=== PATIENT | female | born 1965 | race Hispanic/Latino ===

== ENCOUNTER 2017-05-28 06:24 | Emergency (ER) | payer BC, OTHER ==
[2017-05-28 06:26] VITALS: BMI 28.8
[2017-05-28 06:29] VITALS: TEMP 98.9
[2017-05-28] MEDS ORDERED: Morphine 4 mg/ml ISec IVP STA (06:45)
[2017-05-28 06:55] LABS: BASO # 0.02 K/mm3 (0.0-2.0); BASO % 0.3 % (0.0-3.0); EOS # 0.3 (0.0-0.7); EOS % 3.8 % (1.5-5.0); GRAN # 5.01 (1.4-6.5); GRAN % 64.3 % (50.0-68.0); HEMATOCRIT 39.4 % (36.0-48.0); LYMPH # 1.7 (1.2-3.4); LYMPH % 21.9 % (22.0-35.0); MEAN CELL VOLUME 81.7 fl (80.0-105.0); MEAN CORPUSCULAR HEMOGLOBIN 26.8 pg (25.0-35.0); MEAN CORPUSCULAR HGB CONC 32.7 g/dl (31.0-37.0); MEAN PLATELET VOLUME 9.8 fl (7.0-11.0); MONO # 0.8 (0.1-0.6); MONO % 9.7 % (1.0-6.0); RED CELL DISTRIBUTION WIDTH 13.9 % (11.5-14.5); WHITE BLOOD COUNT 7.8 10^3/ul (4.5-11.0)
[2017-05-28 06:56] LABS: PH,URINE 6.5 (4.7-8.0); URINE APPEARANCE CLEAR (CLEAR); URINE BILIRUBIN NEGATIVE (NEGATIVE); URINE BLOOD NEGATIVE (NEGATIVE); URINE COLOR STRAW (YELLOW); URINE GLUCOSE (UA) NEGATIVE (NEGATIVE); URINE KETONE NEGATIVE (NEGATIVE); URINE LEUKOCYTE ESTERASE TRACE Leu/uL (NEGATIVE); URINE PROTEIN NEGATIVE mg/dL (<30 mg/dL); URINE UROBILINOGEN 0.2 E.U./dL (<1 E.U./dL)
[2017-05-28 06:59] LABS: URINE RBC 0 - 2 /hpf (0-2)
[2017-05-28 07:00] LABS: ALB/GLOB RATIO 1.3 (1.1-1.8); ALKALINE PHOSPHATASE 70 U/L (38-126); ALT/SGPT 24 U/L (7-56); AST/SGOT 22 U/L (14-36); BILIRUBIN,TOTAL 0.9 mg/dL (0.2-1.3); BLOOD UREA NITROGEN 18 mg/dL (7-21); CALCIUM 9.2 mg/dL (8.4-10.5); CARBON DIOXIDE 27 mmol/L (21-33); CHLORIDE 106 mmol/L (98-107); GFR AFRICAN-AMERICAN > 60; GLUCOSE,RANDOM 96 mg/dL (70-110); POTASSIUM 4.2 mmol/L (3.6-5.0); SODIUM 142 mmol/L (132-148); TOTAL PROTEIN 7.4 g/dL (5.8-8.3)
[2017-05-28] MEDS ORDERED: Sodium Chloride 0.9% 1,000 ML IV SCH (07:00)
[2017-05-28] MEDS ORDERED: diaZEpam 10 mg/2 ml Inj IVP STA (07:16)
--- NOTE | 2017-05-28 07:24 | ED PDOC ---
Arrival/HPI - General Chief Complaint: Headache Time Seen by Provider: 05/28/17 06:32 - History of Present Illness Narrative History of Present Illness (Text): 05/28/17 07:20 Patient is a 51 y/o F presenting with abdominal pain and headache. Patient reports that while at work yesterday patient developed a R sided headache that radiated into her R shoulder. 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 She reports that she thinks this has contributed to the pain. Reports that the pain is worse with movement and stretching of her arm and neck. Denies fever, chest pain, shortness of breath, vision changes, weakness, numbness or tingling. She is also complaining of RLQ pain that started this morning. She reports a hx of diverticulitis and reports that the pain feels similar. Reports nausea. Denies vomiting, dysuria, vaginal bleeding, constipation or diarrhea. Past Medical History - Past History Past History: No Previous - Infectious Disease Hx of Infectious Diseases: None - Tetanus Immunization Tetanus Immunization: Up to Date - Past Medical History Past Medical History: No Previous - Cardiac Hx Cardiac Disorders: No Hx Pacemaker: No - Pulmonary Hx Respiratory Disorders: No - Neurological Hx Neurological Disorder: No Hx Paralysis: No - HEENT Hx HEENT Disorder: No - Renal Hx Renal Disorder: Yes Hx Kidney Stones: Yes (passed without intervention) - Endocrine/Metabolic Hx Endocrine Disorders: Yes Hx Hyperthyroidism: Yes (childhood no longer) - Hematological/Oncological Hx Blood Disorders: No Hx Blood Transfusions: No Hx Blood Transfusion Reaction: No - Integumentary Hx Dermatological Disorder: No - Musculoskeletal/Rheumatological Hx Musculoskeletal Disorders: Yes - Gastrointestinal Hx Gastrointestinal Disorders: Yes Hx Diverticulitis: Yes Other/Comment: angulated sigmoid colon - Genitourinary/Gynecological Hx Genitourinary Disorders: Yes Other/Comment: fibroid uterus - Psychiatric Hx Psychophysiologic Disorder: No Hx Emotional Abuse: No Hx Physical Abuse: No Hx Substance Use: No - Surgical History Hx Hysterectomy: Yes Hx Orthopedic Surgery: Yes - Anesthesia Hx Anesthesia Reactions: Yes (mucus salvia build up) Hx Malignant Hyperthermia: No - Suicidal Assessment Feels Threatened In Home Enviroment: No Family/Social History Family/Social History: No Known Family HX Smoking Status: Light Smoker < 10 Cigarettes Daily Hx Alcohol Use: Yes Hx Substance Use: No Hx Substance Use Treatment: No Allergies/Home Meds Allergies/Adverse Reactions: Allergies seasonal allergies Allergy (Severe, Uncoded 04/16/16 12:50) CONGESTION VERIFIED 10/02/14 Home Medications: Home Meds Medication Instructions Recorded Confirmed Omeprazole [Omeprazole] 20 mg PO DAILY 09/07/15 05/28/17 Ranitidine HCl [Acid [employer] Specialist] mg PO HS 05/28/17 Review of Systems - Review of Systems Constitutional: absent: Fevers Eyes: absent: Vision Changes Respiratory: absent: SOB, Cough, Sputum, Wheezing Cardiovascular: absent: Chest Pain, Palpitations, Edema, Calf Pain, Orthopnea, Syncope Gastrointestinal: Abdominal Pain. absent: Constipation, Diarrhea, Nausea, Vomiting Genitourinary Female: absent: Dysuria, Frequency, Hematuria, Vaginal Bleeding, Vaginal Discharge Musculoskeletal: Arthralgias, Back Pain Neurological: Headache. absent: Dizziness, Focal Weakness, Gait Changes, Speech Changes, Facial Droop, Disequilibrium, Seizure Psychiatric: Anxiety Physical Exam Vital Signs Temp Pulse Resp BP Pulse Ox 05/28/17 09:56 65 18 123/72 97 05/28/17 08:33 74 17 128/86 99 05/28/17 06:29 98.9 F 83 20 147/89 98 Temperature: Afebrile Blood Pressure: Normal Pulse: Regular Respiratory Rate: Normal Appearance: Positive for: Well-Appearing, Non-Toxic, Comfortable Pain Distress: None Mental Status: Positive for: Alert and Oriented X 3 - Systems Exam Head: Present: Atraumatic, Normocephalic Pupils: Present: PERRL Extroacular Muscles: Present: EOMI Conjunctiva: Present: Normal Mouth: Present: Moist Mucous Membranes Neck: Present: Normal Range of Motion, Trachea Midline, Other (palpable muscle spasm at base of R neck, tender to palpation). No: MIDLINE TENDERNESS, JVD, Lymphadenopathy, Bruit Respiratory/Chest: Present: Clear to Auscultation, Good Air Exchange. No: Respiratory Distress, Accessory Muscle Use Cardiovascular: Present: Regular Rate and Rhythm, Normal S1, S2. No: Murmurs Abdomen: Present: Tenderness (RLQ). No: Distention, Rebound, Guarding Back: Present: Normal Inspection. No: CVA Tenderness Upper Extremity: Present: Normal Inspection Lower Extremity: Present: Normal Inspection Neurological: Present: GCS=15, CN II-XII Intact, Speech Normal, Motor Func Grossly Intact, Normal Sensory Function Psychiatric: Present: Alert, Oriented x 3, Anxious Medical Decision Making ED Course and Treatment: 05/28/17 07:25 Headache and neck pain consistent with muscle spasm. Neurologically intact, afebrile and well appearing. Labs ordered prior to my shift are grossly normal. UA negative. Will give toradol, valium and get CT to evaluate for diverticulitis vs appendicitis. 05/28/17 09:00 FINDINGS: LOWER THORAX: Hiatal hernia is identified but there is no pleural or pericardial effusion or definitive mass identified. LIVER: Unremarkable. No gross lesion or ductal dilatation. GALLBLADDER AND BILE DUCTS: Unremarkable. PANCREAS: Unremarkable. No gross lesion or ductal dilatation. SPLEEN: Unremarkable. ADRENALS: Unremarkable. No mass. KIDNEYS AND URETERS: Stable lower pole right renal cyst evident. No hydronephrosis. No solid mass. VASCULATURE: Unremarkable. No aortic aneurysm. BOWEL: Post gastric sleeve surgical changes again seen at the stomach. There is no small or large bowel obstruction pattern identified. Mild to moderate AP material scattered throughout the large bowel with moderate sigmoid diverticulosis again seen however the prior inflammatory changes appear to have resolved with no definite acute diverticulitis appreciated this time. The appendix is not identified however there is no overt CT sign to suggest appendicitis at this time. Clinically correlate further. APPENDIX: As above in bowel section. PERITONEUM: Unremarkable. No free fluid. No free air. LYMPH NODES: Unremarkable. No enlarged lymph nodes. BLADDER: Unremarkable. REPRODUCTIVE: Prior hysterectomy again evident. BONES: No acute fracture. OTHER FINDINGS: None. IMPRESSION: No definitive acute abdominal findings including the right lower quadrant although the appendix is not identified. Clinically correlate. No sigmoid diverticulitis although diverticulosis remains moderate appearing with prior infra local inflammatory/infectious changes now resolved. If symptoms persist or worsen follow-up CT with contrast is recommended. Postoperative gastric changes suggestive gastric sleeve surgery in the past. 05/28/17 09:[address] made aware of CT results. Reports hx of chronic headaches and has not followed up with neurology. She is requesting CT to evaluate for chronic headaches. 05/28/17 09:43 CT head negative. After toradol, valium and tylenol, patient feels better. She has soft NT/ND abdomen. She reports that she will follow-up with neurology and will return with any worsening symptoms. - Lab Interpretations Lab Results: 05/28/17 06:40 05/28/17 06:40 Lab Results 05/28/17 06:40: Sodium 142, Potassium 4.2, Chloride 106, Carbon Dioxide 27, Anion Gap 13, BUN 18, Creatinine 0.7, Est GFR ( Amer) > 60, Est GFR (Non- Af Amer) > 60, Random Glucose 96, Calcium 9.2, Total Bilirubin 0.9, AST 22, ALT 24, Alkaline Phosphatase 70, Total Protein 7.4, Albumin 4.2, Globulin 3.3, Albumin/Globulin Ratio 1.3 05/28/17 06:40: Urine Color Straw, Urine Appearance Clear, Urine pH 6.5, Ur Specific [place] <= 1.005, Urine Protein Negative, Urine Glucose (UA) Negative, Urine Ketones Negative, Urine Blood Negative, Urine Nitrate Negative, Urine Bilirubin Negative, Urine Urobilinogen 0.2, Ur Leukocyte Esterase Trace H, Urine RBC 0 - 2, Urine WBC 1 - 3, Ur Epithelial Cells 1 - 3 05/28/17 06:40: WBC 7.8 D, RBC 4.82, Hgb 12.9, Hct 39.4, MCV 81.7, MCH 26.8, MCHC 32.7, RDW 13.9, Plt Count 222, MPV 9.8, Gran % 64.3, Lymph % (Auto) 21.9 L , [place]ake % (Auto) 9.7 H, Eos % (Auto) 3.8, Baso % (Auto) 0.3, Gran # 5.01, Lymph # 1.7, Leake # 0.8 H, Eos # 0.3, Baso # 0.02 - RAD Interpretation Radiology Orders: 05/28/17 07:15 ABD & PELVIS IV CONTRAST ONLY [CT] Stat 05/28/17 09:04 HEAD W/O CONTRAST [CT] Stat - Medication Orders Current Medication Orders: Discontinued Medications Acetaminophen (Tylenol 325mg Tab) 975 mg PO STAT STA Stop: 05/28/17 08:33 Last Admin: 05/28/17 08:59 Dose: 975 mg MAR Pain/Vitals Document 05/28/17 08:59 MR (Rec: 05/28/17 09:00 MR [id number]) Pain Reassessment Is This A Pain ReAssessment? Yes Sleep Is patient sleeping during reassessment? No Presence of Pain Presence of Pain Yes Pain Scale Used Pain Scale Used Numeric Location Left, Right or Bilateral Right Pain Location Body Nutrition Services Manager Description Constant Intensity 7 Scale Used Numeric Pain Behavior Restlessness Facial Grimacing Alleviating Factors Medication Diazepam (Valium) 2 mg IVP STAT STA PRN Reason: Protocol Stop: 05/28/17 07:17 Last Admin: 05/28/17 07:36 Dose: 2 mg IVP Administration Document 05/28/17 07:36 MR (Rec: 05/28/17 07:36 MR [id number]) Charges for Administration # of IVP Administrations 1 Sodium Chloride (Sodium Chloride 0.9%) 1,000 mls @ 100 mls/hr IV .Q10H DELMER Last Admin: 05/28/17 06:59 Dose: 100 mls/hr eMAR Start Stop Document 05/28/17 06:59 YP (Rec: 05/28/17 07:00 YP [facility] [id number]) Intravenous Solution Start Date 05/28/17 Start Time 07:00 Ketorolac Tromethamine (Toradol) 30 mg IVP STAT STA Stop: 05/28/17 07:16 Last Admin: 05/28/17 07:36 Dose: 30 mg MAR Pain Assessment Document 05/28/17 07:36 MR (Rec: 05/28/17 07:39 MR [id number]) Pain Reassessment Is this a pain reassessment? Yes Presence of Pain Presence of Pain Yes Pain Scale Used Pain Scale Used Numeric Location Left, Right or Bilateral Bilateral Pain Location Body Nutrition Services Manager Neck Abdomen Back Description Description Intermittent Intensity of Pain at present 8 Pain Behavior Facial Grimacing Aggravating Factors Changing Position Alleviating Factors/Management Medication Techniques Alleviating Factors Medication IVP Administration Document 05/28/17 07:36 MR (Rec: 05/28/17 07:39 MR [id number]) Charges for Administration # of IVP Administrations 1 Metoclopramide HCl (Reglan) 10 mg IVP STAT STA Stop: 05/28/17 08:34 Last Admin: 05/28/17 09:00 Dose: 10 mg IVP Administration Document 05/28/17 09:00 MR (Rec: 05/28/17 09:00 MR [id number]) Charges for Administration # of IVP Administrations 1 Morphine Sulfate (Morphine) 4 mg IVP STAT STA Stop: 10/26/17 06:46 Last Admin: 05/28/17 06:55 Dose: 4 mg MAR Pain Assessment Document 05/28/17 06:55 SS (Rec: 05/28/17 06:56 SS [id number]) Pain Reassessment Is this a pain reassessment? No Sleep Is patient sleeping during reassessment? No Presence of Pain Presence of Pain Yes Location Upper or Lower Lower Pain Location Body Site Abdomen Description Intensity of Pain at present 10 Pain Behavior Restlessness Facial Grimacing IVP Administration Document 05/28/17 06:55 SS (Rec: 05/28/17 06:56 SS [id number]) Charges for Administration # of IVP Administrations 1 Ondansetron HCl (Zofran Inj) 4 mg IVP STAT STA Stop: 05/28/17 06:47 Last Admin: 05/28/17 06:56 Dose: 4 mg IVP Administration Document 05/28/17 06:56 SS (Rec: 05/28/17 06:56 [id number]) Charges for Administration # of IVP Administrations 1 Disposition/Present on Arrival - Present on Arrival Any Indicators Present on Arrival: No History of DVT/PE: No History of Uncontrolled Diabetes: No Urinary Catheter: No History of Decub. Ulcer: No History Surgical Site Infection Following: None - Disposition Have Diagnosis and Disposition been Completed?: Yes Diagnosis: Abdominal pain, Tension headache Disposition: HOME/ ROUTINE Disposition Time: 09:44 Patient Plan: Discharge Condition: GOOD Discharge Instructions (ExitCare): Tension Headache (ED) Additional Instructions: Follow-up with PMD within 2 days. Return to ED if condition worsens. Referrals: Goyo Oh MD [Staff Provider] - Follow up with primary Pedro Oh MD [Staff Provider] - Follow up with primary Forms: [employer] (Kinyarwanda)
[2017-05-28] MEDS ORDERED: Iohexol 350 MG/100 ML VIAL ONE (07:30)
--- NOTE | 2017-05-28 08:58 | CT ---
PROCEDURE: CT Abdomen and Pelvis with contrast HISTORY: RLQ pain, hx of diverticulitis COMPARISON: Unenhanced and pelvis CT 04/05/2016. TECHNIQUE: Following the intravenous administration of iodinated contrast material, a CT examination of the abdomen and pelvis performed from the domes of the diaphragms to the symphysis pubis with reformatted datasets provided not only axial but also sagittal and coronal planes. Oral contrast was not administered as per referring physician request. Contrast dose: Omnipaque 350, 100 cc. Radiation dose: Total exam DLP = 958.30 mGy-cm. This CT exam was performed using one or more of the following dose reduction techniques: Automated exposure control, adjustment of the mA and/or kV according to patient size, and/or use of iterative reconstruction technique. FINDINGS: LOWER THORAX: Hiatal hernia is identified but there is no pleural or pericardial effusion or definitive mass identified. LIVER: Unremarkable. No gross lesion or ductal dilatation. GALLBLADDER AND BILE DUCTS: Unremarkable. PANCREAS: Unremarkable. No gross lesion or ductal dilatation. SPLEEN: Unremarkable. ADRENALS: Unremarkable. No mass. KIDNEYS AND URETERS: Stable lower pole right renal cyst evident. No hydronephrosis. No solid mass. VASCULATURE: Unremarkable. No aortic aneurysm. BOWEL: Post gastric sleeve surgical changes again seen at the stomach. There is no small or large bowel obstruction pattern identified. Mild to moderate AP material scattered throughout the large bowel with moderate sigmoid diverticulosis again seen however the prior inflammatory changes appear to have resolved with no definite acute diverticulitis appreciated this time. The appendix is not identified however there is no overt CT sign to suggest appendicitis at this time. Clinically correlate further. APPENDIX: As above in bowel section. PERITONEUM: Unremarkable. No free fluid. No free air. LYMPH NODES: Unremarkable. No enlarged lymph nodes. BLADDER: Unremarkable. REPRODUCTIVE: Prior hysterectomy again evident. BONES: No acute fracture. OTHER FINDINGS: None. IMPRESSION: No definitive acute abdominal findings including the right lower quadrant although the appendix is not identified. Clinically correlate. No sigmoid diverticulitis although diverticulosis remains moderate appearing with prior infra local inflammatory/infectious changes now resolved. If symptoms persist or worsen follow-up CT with contrast is recommended. Postoperative gastric changes suggestive gastric sleeve surgery in the past.
--- NOTE | 2017-05-28 09:42 | CT ---
PROCEDURE: CT HEAD WITHOUT CONTRAST. HISTORY: headache COMPARISON: None available. TECHNIQUE: Axial computed tomography images were obtained through the head/brain without intravenous contrast. Radiation dose: Total exam DLP = 726 mGy-cm. This CT exam was performed using one or more of the following dose reduction techniques: Automated exposure control, adjustment of the mA and/or kV according to patient size, and/or use of iterative reconstruction technique. FINDINGS: HEMORRHAGE: No intracranial hemorrhage. BRAIN: No mass effect or edema. No atrophy or chronic microvascular ischemic changes. VENTRICLES: Unremarkable. No hydrocephalus. CALVARIUM: Unremarkable. PARANASAL SINUSES: Unremarkable as visualized. No significant inflammatory changes. MASTOID AIR CELLS: Unremarkable as visualized. No inflammatory changes. OTHER FINDINGS: None. IMPRESSION: No acute findings
[2017-05-28 09:57] VITALS: BP 123/72; PULSE 65; RESP 18; O2SAT 97
== END 2017-05-28 09:58 | disposition home or self-care (01) ==
LOC: ED 06:24
DX: R10.9 Unspecified abdominal pain (principal); G44.209 Tension-type headache, unspecified, not intractable; E05.90 Thyrotoxicosis, unspecified without thyrotoxic crisis or storm; F17.210 Nicotine dependence, cigarettes, uncomplicated
CPT/HCPCS: 70450; 74177; 80053; 81001; 85025; 87086; 96374; 96375; 99285; J1885; J2270; J2405; J2765; J3360; J7040; Q9967

== ENCOUNTER 2018-09-14 17:23 | Observation (INO) | payer BC ==
[2018-09-14 17:32] VITALS: BMI 31.6
--- NOTE | 2018-09-14 18:06 | ED PDOC ---
Arrival/HPI - General Chief Complaint: Chest Pain Time Seen by Provider: 09/14/18 17:26 Historian: Patient - History of Present Illness Narrative History of Present Illness (Text): 09/14/18 17:57 53 y/o female with PMH of GERD, obesity (s/p gastric sleeve 2006), chronic left shoulder pain presents to the ED c/o chest pain x 45 minutes. Describes the pain as a pressure over the left breast with radiation into the left arm with associated sharp pain that radiates through to her back between her shoulder blades. Began while she was sitting at work, associated nausea, lightheadedness, SOB. Took 81mg of ASA at work, given to her by a friend. Does not take ASA daily, does not have a career counselor. Last stress test 3 years ago, normal. Admits to drinking a few glasses of wine and smoking 1/2ppd tobacco on the weekends. Currently feels anxious in addition to the pain. Denies fevers, chills, cough, syncope, palpitations, vomiting, diarrhea, weakness, numbness, paresthesias, or any other associated symptoms. Past Medical History - Provider Review Nursing Documentation Reviewed: Yes - Past History Past History: No Previous - Infectious Disease Hx of Infectious Diseases: None - Tetanus Immunization Tetanus Immunization: Up to Date - Reproductive Currently : Unknown - Past Medical History Past Medical History: No Previous - Cardiac Hx Cardiac Disorders: No - Pulmonary Hx Respiratory Disorders: No - Neurological Hx Neurological Disorder: No - HEENT Hx HEENT Disorder: No - Renal Hx Renal Disorder: Yes Hx Kidney Stones: Yes (passed without intervention) - Endocrine/Metabolic Hx Endocrine Disorders: Yes Hx Hyperthyroidism: Yes (childhood no longer) - Hematological/Oncological Hx Blood Disorders: No - Integumentary Hx Dermatological Disorder: No - Musculoskeletal/Rheumatological Hx Musculoskeletal Disorders: Yes - Gastrointestinal Hx Gastrointestinal Disorders: Yes Hx Diverticulitis: Yes Other/Comment: angulated sigmoid colon - Genitourinary/Gynecological Hx Genitourinary Disorders: Yes Other/Comment: fibroid uterus - Psychiatric Hx Psychophysiologic Disorder: No Hx Substance Use: No - Surgical History Hx Hysterectomy: Yes Hx Orthopedic Surgery: Yes - Anesthesia Hx Anesthesia: Yes Hx Anesthesia Reactions: Yes (mucus salvia build up) Hx Malignant Hyperthermia: No - Suicidal Assessment Feels Threatened In Home Enviroment: No Family/Social History - Physician Review Nursing Documentation Reviewed: Yes Family/Social History: Unknown Family HX Smoking Status: Light Smoker < 10 Cigarettes Daily Hx Alcohol Use: Yes Hx Substance Use: No Hx Substance Use Treatment: No Allergies/Home Meds Allergies/Adverse Reactions: Allergies seasonal allergies Allergy (Severe, Uncoded 09/14/18 17:32) CONGESTION VERIFIED 10/02/14 Home Medications: Home Meds Medication Instructions Recorded Confirmed Omeprazole 20 mg PO DAILY 09/07/15 09/14/18 Ranitidine HCl [Acid Compensation Analyst] 300 mg PO HS 05/28/17 09/14/18 Review of Systems - Physician Review All systems were reviewed & negative as marked: Yes - Review of Systems Constitutional: absent: Fatigue, Fevers Eyes: Normal. absent: Vision Changes ENT: Normal. absent: Sore Throat, Sinus Congestion Respiratory: SOB. absent: Cough, Sputum, Wheezing Cardiovascular: Chest Pain. absent: Palpitations, Edema, Calf Pain, Syncope Gastrointestinal: Abdominal Pain, Nausea. absent: Stool Changes, Vomiting, Appetite Changes Genitourinary Female: Normal. absent: Dysuria, Frequency Musculoskeletal: Back Pain Skin: Normal. absent: Rash, Pruritis Neurological: Normal. absent: Headache, Dizziness, Seizure Endocrine: Normal. absent: Diaphoresis Hemo/Lymphatic: Normal Psychiatric: Anxiety Physical Exam Vital Signs Reviewed: Yes Vital Signs Temp Pulse Resp BP Pulse Ox 09/14/18 17:24 98 F 92 H 17 152/107 H 99 Temperature: Afebrile Blood Pressure: Hypertensive Pulse: Regular Respiratory Rate: Normal Appearance: Positive for: Well-Appearing, Non-Toxic, Comfortable Pain Distress: None Mental Status: Positive for: Alert and Oriented X 3 - Systems Exam Head: Present: Atraumatic, Normocephalic Pupils: Present: PERRL Extroacular Muscles: Present: EOMI Conjunctiva: Present: Normal Mouth: Present: Moist Mucous Membranes Nose (External): Present: Atraumatic Neck: Present: Normal Range of Motion. No: Meningeal Signs, MIDLINE TENDERNESS, Paraspinal Tenderness Respiratory/Chest: Present: Clear to Auscultation, Good Air Exchange. No: Respiratory Distress, Accessory Muscle Use Cardiovascular: Present: Regular Rate and Rhythm, Normal S1, S2, Peripheal Pulses Present (and equal). No: Murmurs Abdomen: Present: Normal Bowel Sounds. No: Tenderness, Distention, Peritoneal Signs, Rebound, Guarding Back: Present: Normal Inspection. No: CVA Tenderness, Midline Tenderness Upper Extremity: Present: Normal Inspection, Normal ROM, NORMAL PULSES, N eurovascularly Intact, Capillary Refill < 2s. No: Cyanosis, Edema, Temperature Abnormalties Lower Extremity: Present: Normal Inspection, NORMAL PULSES, Normal ROM, Neurovascularly Intact, Capillary Refill < 2 s. No: Edema, Temperature Abnormalties Neurological: Present: GCS=15, CN II-XII Intact, Speech Normal, Motor Func Grossly Intact (strength 5/5 bilaterally ), Normal Sensory Function, Normal Cerebellar Funct, Gait Normal, Other (negative rhomberg) Skin: Present: Warm, Dry, Normal Color. No: Rashes Psychiatric: Present: Alert, Oriented x 3, Normal Insight, Normal Concentration, Normal Affect, Anxious Medical Decision Making ED Course and Treatment: Initial Plan: * CBC, CMP * Coags * Mg, Phos * Troponin * Lipid Panel * EKG * CXR EKG shows NSR at 84; No STEMI or other signs of ischemia ASA held pending CTA to r/o dissection. [address] for CTA dissection protocol Labwork reviewed, Mg elevated, lipids elevated, otherwise unremarkable; troponin negative. UA significant for moderate leuk esterase, will give Keflex bid x 7 days. CXR unremarkable 1904 CTA resulted. Shows no abnormality, no dissection. [address] Manav Gonzalez, who accepted patient for inpatient observation to telemetry for chest pain, r/o ACS. - Lab Interpretations Narrative Lab Interpretation (Text): 09/14/18 18:40 09/14/18 18:00 09/14/18 18:00 Lab Results 09/14/18 18:00: Sodium 141, Potassium 4.5, Chloride 106, Carbon Dioxide 27, Anion Gap 12, BUN 19, Creatinine 0.7, Est GFR ( Amer) > 60, Est GFR (Non-Af Amer) > 60, Random Glucose 100, Calcium 9.4, Magnesium 2.3 H, Total Bilirubin 0.4, AST 82 H D, ALT 55, Alkaline Phosphatase 104, Troponin I < 0.01, Total Protein 8.0, Albumin 4.5, Globulin 3.5, Albumin/Globulin Ratio 1.3, Triglycerides 152, Cholesterol 208 H, LDL Cholesterol Direct 98, HDL Cholesterol 97 H, Lipase 87 09/14/18 18:00: Urine Color Yellow, Urine Appearance Clear, Urine pH 6.5, Ur Specific [place] 1.010, Urine Protein Negative, Urine Glucose (UA) Negative, U rine Ketones Negative, Urine Blood Negative, Urine Nitrate Negative, Urine Bilirubin Negative, Urine Urobilinogen 0.2, Ur Leukocyte Esterase Moderate H, Urine RBC TEST NOT PERFORMED, Urine WBC 10 - 15 H, Ur Epithelial Cells 10 - 12 H 09/14/18 18:00: PT 10.6, INR 0.95, APTT 34.5 09/14/18 18:00: WBC 5.5, RBC 5.02, Hgb 12.0, Hct 38.4, MCV 76.5 L D, MCH 23.9 L, MCHC 31.3, RDW 17.0 H, Plt Count 265, MPV 9.8, Neut % (Auto) 58.1, Lymph % (Auto) 31.4, [place] % (Auto) 6.4 H, Eos % (Auto) 3.6, Baso % (Auto) 0.5, Lymph # (Auto) 1.7, [place] # (Auto) 0.4, Eos # (Auto) 0.2, Baso # (Auto) 0.03, Absolute Neuts (auto) 3.20 Lab Results: 09/14/18 18:00 09/14/18 18:00 Lab Results 09/14/18 18:00: Sodium 141, Potassium 4.5, Chloride 106, Carbon Dioxide 27, Anion Gap 12, BUN 19, Creatinine 0.7, Est GFR ( Amer) > 60, Est GFR (Non- Af Amer) > 60, Random Glucose 100, Calcium 9.4, Magnesium 2.3 H, Total Bilirubin 0.4, AST 82 H D, ALT 55, Alkaline Phosphatase 104, Troponin I < 0.01, Total Protein 8.0, Albumin 4.5, Globulin 3.5, Albumin/Globulin Ratio 1.3, Triglycerides 152, Cholesterol 208 H, LDL Cholesterol Direct 98, HDL Cholesterol 97 H, Lipase 87 09/14/18 18:00: Urine Color Yellow, Urine Appearance Clear, Urine pH 6.5, Ur Specific [place] 1.010, Urine Protein Negative, Urine Glucose (UA) Negative, Urine Ketones Negative, Urine Blood Negative, Urine Nitrate Negative, Urine Bilirubin Negative, Urine Urobilinogen 0.2, Ur Leukocyte Esterase Moderate H, Urine RBC TEST NOT PERFORMED, Urine WBC 10 - 15 H, Ur Epithelial Cells 10 - 12 H 09/14/18 18:00: PT 10.6, INR 0.95, APTT 34.5 09/14/18 18:00: WBC 5.5, RBC 5.02, Hgb 12.0, Hct 38.4, MCV 76.5 L D, MCH 23.9 L, MCHC 31.3, RDW 17.0 H, Plt Count 265, MPV 9.8, Neut % (Auto) 58.1, Lymph % (Auto) 31.4, [place] % (Auto) 6.4 H, Eos % (Auto) 3.6, Baso % (Auto) 0.5, Lymph # (Auto) 1.7, [place] # (Auto) 0.4, Eos # (Auto) 0.2, Baso # (Auto) 0.03, Absolute Neuts (auto) 3.20 I have reviewed the lab results: Yes - RAD Interpretation Narrative RAD Interpretations (Text): 09/14/18 18:48 CXR: FINDINGS: LUNGS: No focal consolidation. Please note that chest x-ray has limited sensitivity for the detection of pulmonary masses. PLEURA: No significant pleural effusion identified. No definite pneumothorax . CARDIOVASCULAR: Cardiomegaly. Atherosclerotic calcifications. OSSEOUS STRUCTURES: Degenerative changes. VISUALIZED UPPER ABDOMEN: Unremarkable. OTHER FINDINGS: None. IMPRESSION: No focal consolidation. Cardiomegaly. Ectatic aorta. 09/14/18 19:12 CTA Dissection Protocol: Findings: Visualized portions of the inferior thyroid gland appear heterogeneous. The mediastinal and hilar vascular structures appear within normal limits. The heart appears within normal limits of size. Sub cm mediastinal/prevascular lymph nodes, nonspecific. No evidence of thoracic aorta dissection or aneurysmal dilatation. No focal consolidation. No pleural effusion. No pneumothorax. There is normal course and contour of the abdominal aorta and common iliac arteries. No atherosclerotic calcifications of the aorta appreciated. Moderate hiatal hernia. The stomach is nondistended. Postsurgical gastric changes. The liver appears within normal limits of size and morphology. The pancreas, spleen, adrenal glands, and gallbladder appear unremarkable. The kidneys enhance symmetrically without evidence of hydronephrosis or obstructing renal calculi. 3.8 x 2.7 cm right lower pole renal cyst. No enlarged abdominal lymphadenopathy is identified. Visualized bowel loops appear within normal limits of caliber without evidence of obstruction. The appendix is not identified. No inflammatory changes are seen in the right lower quadrant to suggest acute appendicitis. No definite free air. The urinary bladder appears unremarkable. The uterus is absent consistent with hysterectomy. No significant pelvic free fluid is identified. Scoliosis. Degenerative changes. Impression: No acute pathology identified. Findings as above. Radiology Orders: 09/14/18 17:33 CHEST PORTABLE [RAD] Stat 09/14/18 17:49 ANGIOGRAPHY DISECTION PROTOCOL [CT] Stat Receiving Room Clerk: Radiologist ([facility]) - EKG Interpretation EKG Interpretation (Text): 09/14/18 18:38 Rate 84; NSR; Normal Intervals; No STEMI or other signs of acute ischemia. Interpreted by ED Physician: Yes Type: 12 lead EKG Disposition/Present on Arrival - Present on Arrival Any Indicators Present on Arrival: No History of DVT/PE: No History of Uncontrolled Diabetes: No Urinary Catheter: No History of Decub. Ulcer: No History Surgical Site Infection Following: None - Disposition Have Diagnosis and Disposition been Completed?: Yes Diagnosis: Chest pain, UTI (urinary tract infection) Disposition: HOSPITALIZED Disposition Time: 19:40 Patient Plan: Admission Condition: STABLE
[2018-09-14 18:13] LABS: BASO # 0.03 K/mm3 (0.0-2.0); BASO % 0.5 % (0.0-3.0); EOS # 0.2 (0.0-0.7); EOS % 3.6 % (1.5-5.0); LYMPH # 1.7 (1.2-3.4); LYMPH % 31.4 % (22.0-35.0); MEAN CELL VOLUME 76.5 fl (80.0-105.0); MEAN CORPUSCULAR HEMOGLOBIN 23.9 pg (25.0-35.0); MEAN CORPUSCULAR HGB CONC 31.3 g/dl (31.0-37.0); MEAN PLATELET VOLUME 9.8 fl (7.0-11.0); MONO # 0.4 (0.1-0.6); MONO % 6.4 % (1.0-6.0); RBC 5.02 10^6/uL (3.5-6.1); WHITE BLOOD COUNT 5.5 10^3/uL (4.5-11.0)
[2018-09-14 18:14] LABS: PH,URINE 6.5 (4.7-8.0); URINE BILIRUBIN NEGATIVE (NEGATIVE); URINE BLOOD NEGATIVE (NEGATIVE); URINE GLUCOSE (UA) NEGATIVE (NEGATIVE); URINE LEUKOCYTE ESTERASE MODERATE Leu/uL (NEGATIVE); URINE PROTEIN NEGATIVE mg/dL (<30 mg/dL); URINE UROBILINOGEN 0.2 E.U./dL (<1 E.U./dL)
[2018-09-14 18:16] LABS: URINE APPEARANCE CLEAR (CLEAR); URINE COLOR YELLOW (YELLOW)
[2018-09-14 18:24] LABS: ALB/GLOB RATIO 1.3 (1.1-1.8); ALBUMIN 4.5 g/dL (3.0-4.8); ALT/SGPT 55 U/L (7-56); AST/SGOT 82 U/L (14-36); BLOOD UREA NITROGEN 19 mg/dL (7-21); CALCIUM 9.4 mg/dL (8.4-10.5); GFR NON-AFRICAN AMERICAN > 60; HDL CHOLESTEROL 97 mg/dL (29-60); INR 0.95; LIPASE 87 U/L (23-300); PARTIAL THROMBOPLASTIN TIME 34.5 Seconds (26.9-38.3); PROTHROMBIN TIME 10.6 SECONDS (9.4-12.5)
[2018-09-14] MEDS ORDERED: Iodixanol 320 MG/ML 100 ML BOTTLE IV ONE (18:32)
[2018-09-14 18:34] LABS: LDL CHOLESTEROL 98 mg/dL (0-129)
--- NOTE | 2018-09-14 18:34 | RAD ---
HISTORY: chest pain COMPARISON: Chest x-ray performed 11/28/16 TECHNIQUE: Chest, one view. FINDINGS: LUNGS: No focal consolidation. Please note that chest x-ray has limited sensitivity for the detection of pulmonary masses. PLEURA: No significant pleural effusion identified. No definite pneumothorax . CARDIOVASCULAR: Cardiomegaly. Atherosclerotic calcifications. OSSEOUS STRUCTURES: Degenerative changes. VISUALIZED UPPER ABDOMEN: Unremarkable. OTHER FINDINGS: None. IMPRESSION: No focal consolidation. Cardiomegaly. Ectatic aorta.
[2018-09-14 18:37] LABS: TROPONIN I < 0.01 ng/mL
--- NOTE | 2018-09-14 19:03 | CT ---
Date of service: 09/14/2018 CT Dissection protocol Indication: chest pain radiates into back Technique: Contiguous axial images were obtained through the chest/abdomen/pelvis without and with intravenous contrast enhancement utilizing dissection protocol technique. Sagittal and coronal reconstructions were generated and reviewed. This CT exam was performed using 1 or more of the following dose reduction techniques: Automated exposure control, adjustment of the MAA and/or kV according to patient size, and/or use of iterative reconstruction technique. Radiation dose (DLP): 1284.65 MGy-cm. Contrast: 100 cc Visipaque [id number] Findings: Visualized portions of the inferior thyroid gland appear heterogeneous. The mediastinal and hilar vascular structures appear within normal limits. The heart appears within normal limits of size. Sub cm mediastinal/prevascular lymph nodes, nonspecific. No evidence of thoracic aorta dissection or aneurysmal dilatation. No focal consolidation. No pleural effusion. No pneumothorax. There is normal course and contour of the abdominal aorta and common iliac arteries. No atherosclerotic calcifications of the aorta appreciated. Moderate hiatal hernia. The stomach is nondistended. Postsurgical gastric changes. The liver appears within normal limits of size and morphology. The pancreas, spleen, adrenal glands, and gallbladder appear unremarkable. The kidneys enhance symmetrically without evidence of hydronephrosis or obstructing renal calculi. 3.8 x 2.7 cm right lower pole renal cyst. No enlarged abdominal lymphadenopathy is identified. Visualized bowel loops appear within normal limits of caliber without evidence of obstruction. The appendix is not identified. No inflammatory changes are seen in the right lower quadrant to suggest acute appendicitis. No definite free air. The urinary bladder appears unremarkable. The uterus is absent consistent with hysterectomy. No significant pelvic free fluid is identified. Scoliosis. Degenerative changes. Impression: No acute pathology identified. Findings as above.
[2018-09-14 19:42] VITALS: RESP 18
[2018-09-14] MEDS ORDERED: Alum-Mag Hydrox-Simethicone Susp (30 mL) PO PRN (20:03)
--- NOTE | 2018-09-15 02:22 | HP ---
DATE OF EXAM: 09/14/2018 CHIEF COMPLAINT: Chest pain. HISTORY OF PRESENT ILLNESS: This is a 53-year-old woman with no history of coronary artery disease, who is at work today. She began to feel a chest pain that radiated to her left shoulder and down her arm. She felt weak. There was no diaphoresis, no pallor, no palpitations. She became quite nauseous. The coworkers noticed that she did not appear well. I spoke with her. Ambulance was called and she was taken to the emergency room. Patient states that the pain is a steady pressure like discomfort. It was not sharp, but it did radiate to the left shoulder and arm. It was not related to exertions, although earlier in the day, she was moving a heavy box across the carpeted floor by bending over and crushing with a wall and feels that she may have sprained some of her chest wall muscles. This episode of chest discomfort lasted several hours, nothing she could do, could make it better or make it worse. So ambulance called, she came to the emergency room and the pains quietly subsided. She is now relatively comfortable with some residual soreness in her left pectoralis area as she has been seen in the ER slot #3. PAST MEDICAL HISTORY: Significant only for anxiety, diverticulosis and hospitalization to a severe diverticulitis approximately 3 years ago and she is status post bariatric surgery with gastric band, followed several years by gastric sleeve procedure. HOME MEDICATIONS: Proton pump inhibitor for reflux and Xanax for anxiety. ALLERGIES: SHE IS NOT ALLERGIC TO ANY MEDICINES. FAMILY HISTORY: Noncontributory. Mother and father alive and well in their 70s. SOCIAL HISTORY: Continues to smoke 3 cigarettes every day. Drinks alcohol on occasions, around the weekends. She is and lives with her and no children. 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 REVIEW OF SYSTEMS: Otherwise negative on multiple points. PHYSICAL EXAMINATION: GENERAL: Patient is seen this Thursday evening approximately 7:30 p.m. in the Emergency Room slot #3. She is awake, alert and clear, accompanied by her cousin. HEENT: Head is unremarkable. Conjunctiva pink. Mucous membranes are moist. NECK: Supple without masses. Thyroid is not palpable. There is no JVD present. HEART: Regular without murmurs. LUNGS: Clear to auscultation and percussion. ABDOMEN: Mildly overweight, but soft, nontender. EXTREMITIES: Show no edema. IMPRESSION: Atypical chest pain in a 53-year-old woman with negative finding on stress test 3 years ago, but with risk factors of smoking and overweight. PLAN: The patient will be admitted to a monitored bed for overnight observation. Her floor coverings installer Dr. Nazario Spann has been called. We will continue prior medications, proton pump inhibitors, Tylenol for pain. We will hold off on NSAIDs in view of history of reflux and gastric band surgery. Even I suspected her symptoms to be mostly musculoskeletal in origin. We will continue her proton pump inhibitors, anxiolytics, and add zolpidem for sleep. We will discuss with Cardiology tomorrow. If the cardiac enzymes remain stable or negative and our clinical suspicion for coronary artery disease remains slow, may be discharged home or conduct a thallium stress test here in the hospital with discharge to home. Manav Gonzalez MD
[2018-09-15 06:20] LABS: BASO # 0.03 K/mm3 (0.0-2.0); BASO % 0.7 % (0.0-3.0); EOS # 0.2 (0.0-0.7); EOS % 5.9 % (1.5-5.0); HEMOGLOBIN 12.4 g/dL (12.0-16.0); LYMPH # 1.1 (1.2-3.4); LYMPH % 25.9 % (22.0-35.0); MEAN CELL VOLUME 76.4 fl (80.0-105.0); MEAN CORPUSCULAR HEMOGLOBIN 23.9 pg (25.0-35.0); MEAN CORPUSCULAR HGB CONC 31.3 g/dl (31.0-37.0); MONO # 0.3 (0.1-0.6); MONO % 8.1 % (1.0-6.0); RBC 5.18 10^6/uL (3.5-6.1); RED CELL DISTRIBUTION WIDTH 16.8 % (11.5-14.5); WHITE BLOOD COUNT 4.1 10^3/uL (4.5-11.0)
[2018-09-15 06:37] VITALS: BP 123/91; PULSE 65; TEMP 98.2; O2SAT 98
[2018-09-15 06:41] LABS: ALB/GLOB RATIO 1.2 (1.1-1.8); ALBUMIN 4.4 g/dL (3.0-4.8); ALT/SGPT 79 U/L (7-56); AST/SGOT 92 U/L (14-36); BLOOD UREA NITROGEN 15 mg/dL (7-21); CALCIUM 9.3 mg/dL (8.4-10.5); GFR NON-AFRICAN AMERICAN > 60
[2018-09-15 06:50] LABS: TROPONIN I < 0.01 ng/mL
[2018-09-15] MEDS ORDERED: Pantoprazole 40 mg EC Tab PO SCH (07:30)
--- NOTE | 2018-09-15 09:35 | CARD ---
APPROVED REPORT Date of service: 09/14/2018 EKG Measurement Heart [id number] <Conclusion> Normal sinus rhythm Normal ECG
--- NOTE | 2018-09-15 10:03 | CARD ---
APPROVED REPORT Date of service: 09/15/2018 EKG Measurement Heart [id number] [id number] <Conclusion> Normal sinus rhythm Nonspecific ST and T wave abnormality Abnormal ECG
--- NOTE | 2018-09-15 13:30 | CON ---
DATE OF CONSULTATION: 09/15/2018 CARDIOLOGY CONSULTATION HISTORY OF PRESENT ILLNESS: The patient is a 53-year-old woman, who presents with atypical left shoulder pain radiating to the chest and radiating to the right back as well as radiating to the substernal area. The symptoms are described as flushing. The symptoms are completely resolved by now. The patient has no previous cardiac history. She does have a history of anxiety as well as peptic ulcer disease. Denies hypertension. Denies hypercholesterolemia. SOCIAL HISTORY: The patient does not smoke. REVIEW OF SYSTEMS: Fourteen-point review of systems is reviewed. The patient has had left shoulder surgery, which is caused with chronic pain. PHYSICAL EXAMINATION: VITAL SIGNS: Blood pressure is 123/91, the heart rate is in the 60s. NECK: Negative JVD. LUNGS: Without rales. CARDIAC: Heart rate S1, S2. EXTREMITIES: Without edema. LABORATORY DATA: Laboratories include an EKG x2, which is within normal limits. Troponins are negative x2. CT scan reveals no dissection, no pulmonary embolism. Hemoglobin is 12.4. IMPRESSION: 1. Atypical chest pain. 2. No evidence for acute coronary syndrome. 3. Palpitation. 4. Anxiety. PLAN: Given these findings, there is no evidence for acute coronary syndrome. The patient can be discharged from a cardiac perspective. We will arrange for an outpatient stress test. Nazario Spann MD
== END 2018-09-15 09:33 | disposition home or self-care (01) ==
LOC: ED 17:23 → ERH 19:43 → 2RNO 21:46
PROVIDERS: ADMIT Internal Medicine; ATTEND Internal Medicine
DX: R07.89 Other chest pain (principal); K21.9 Gastro-esophageal reflux disease without esophagitis; G89.29 Other chronic pain; F17.210 Nicotine dependence, cigarettes, uncomplicated; F41.9 Anxiety disorder, unspecified; I51.7 Cardiomegaly; I77.819 Aortic ectasia, unspecified site; N39.0 Urinary tract infection, site not specified; X50.0XXA Overexertion from strenuous movement or load, initial encounter; Z87.11 Personal history of peptic ulcer disease; Z87.442 Personal history of urinary calculi; Z90.710 Acquired absence of both cervix and uterus; Z98.84 Bariatric surgery status; J30.2 Other seasonal allergic rhinitis; M41.9 Scoliosis, unspecified
CPT/HCPCS: 36415; 71045; 71275; 74175; 80053; 80061; 81001; 83690; 83735; 84484; 85025; 85610; 85651; 85730; 87086; 93005; 99285; G0378; Q9967

== ENCOUNTER 2018-09-17 22:37 | Inpatient (IN) | payer BC ==
[2018-09-17] MEDS ORDERED: Morphine 4 mg/ml ISec IVP STA (23:12)
[2018-09-17] MEDS ORDERED: Sodium Chloride 0.9% 1,000 ML IV STA (23:12)
--- NOTE | 2018-09-17 23:49 | ED PDOC ---
Arrival/HPI - General Chief Complaint: Abdominal Pain Time Seen by Provider: 09/17/18 23:06 Historian: Patient - History of Present Illness Narrative History of Present Illness (Text): 09/17/18 23:15 53 year old female, whose past medical history includes gastric sleeve, and anxiety, presents for evaluation of abdominal pain which began this afternoon. Patient reports she ate a hamburger which prompted the pain. Patient reports multiple episodes of vomiting and upper abdominal pain. Of note, patient was seen two days ago for chest pain and is due for an outpatient stress test. Patient states the chest pain has resolved. Patient denies any fever, chills, chest pain, shortness of breath, diarrhea, urinary symptoms, back pain, neck pain, headache, dizziness, or any other complaints. PMD: Dr. Gonzalez Time/Duration: Other (this afternoon) Symptom Onset: Gradual Symptom Course: Unchanged Activities at Onset: Light Context: Home Past Medical History - Provider Review Nursing Documentation Reviewed: Yes - Past History Past History: No Previous - Infectious Disease Hx of Infectious Diseases: None - Tetanus Immunization Tetanus Immunization: Up to Date - Reproductive Currently : Unknown - Past Medical History Past Medical History: No Previous - Cardiac Hx Cardiac Disorders: No - Pulmonary Hx Respiratory Disorders: No - Neurological Hx Neurological Disorder: No - HEENT Hx HEENT Disorder: No - Renal Hx Renal Disorder: Yes Hx Kidney Stones: Yes (passed without intervention) - Endocrine/Metabolic Hx Endocrine Disorders: Yes Hx Hyperthyroidism: Yes (childhood no longer) - Hematological/Oncological Hx Blood Disorders: No - Integumentary Hx Dermatological Disorder: No - Musculoskeletal/Rheumatological Hx Musculoskeletal Disorders: Yes - Gastrointestinal Other/Comment: angulated sigmoid colon - Genitourinary/Gynecological Hx Genitourinary Disorders: Yes Other/Comment: fibroid uterus - Psychiatric Hx Psychophysiologic Disorder: No Hx Substance Use: No - Surgical History Hx Hysterectomy: Yes Hx Orthopedic Surgery: Yes - Anesthesia Hx Anesthesia: Yes Hx Anesthesia Reactions: Yes (mucus salvia build up) Hx Malignant Hyperthermia: No - Suicidal Assessment Feels Threatened In Home Enviroment: No Family/Social History - Physician Review Nursing Documentation Reviewed: Yes Family/Social History: No Known Family HX Smoking Status: Light Smoker < 10 Cigarettes Daily Hx Alcohol Use: Yes Hx Substance Use: No Hx Substance Use Treatment: No Allergies/Home Meds Allergies/Adverse Reactions: Allergies seasonal allergies Allergy (Severe, Uncoded 09/17/18 23:01) CONGESTION VERIFIED 10/02/14 Home Medications: Home Meds Medication Instructions Recorded Confirmed Omeprazole 20 mg PO DAILY 09/07/15 09/14/18 Ranitidine HCl [Acid Bench Mover] 300 mg PO HS 05/28/17 09/14/18 Review of Systems - Physician Review All systems were reviewed & negative as marked: Yes - Review of Systems Constitutional: absent: Fevers, Other (chills) Respiratory: absent: SOB Cardiovascular: absent: Chest Pain Gastrointestinal: Abdominal Pain, Nausea, Vomiting. absent: Diarrhea Genitourinary Female: absent: Dysuria, Frequency, Hematuria Musculoskeletal: absent: Back Pain, Neck Pain Neurological: absent: Headache, Dizziness Physical Exam Vital Signs Reviewed: Yes Vital Signs Temp Pulse Resp BP Pulse Ox 09/17/18 22:47 97.7 F 69 19 125/79 98 Temperature: Afebrile Blood Pressure: Normal Pulse: Regular Respiratory Rate: Normal Appearance: Positive for: Well-Appearing, Non-Toxic, Uncomfortable (from pain) Pain Distress: None Mental Status: Positive for: Alert and Oriented X 3 - Systems Exam Head: Present: Atraumatic, Normocephalic Pupils: Present: PERRL Extroacular Muscles: Present: EOMI Conjunctiva: Present: Normal Mouth: Present: Moist Mucous Membranes Neck: Present: Normal Range of Motion Respiratory/Chest: Present: Clear to Auscultation, Good Air Exchange. No: Respiratory Distress, Accessory Muscle Use Cardiovascular: Present: Regular Rate and Rhythm, Normal S1, S2. No: Murmurs Abdomen: Present: Tenderness (epigastric tenderness). No: Distention, Peritoneal Signs Back: Present: Normal Inspection Upper Extremity: Present: Normal Inspection. No: Cyanosis, Edema Lower Extremity: Present: Normal Inspection. No: Edema Neurological: Present: GCS=15, Speech Normal Skin: Present: Warm, Dry, Normal Color. No: Rashes Psychiatric: Present: Alert, Oriented x 3, Normal Insight, Normal Concentration, Anxious Medical Decision Making ED Course and Treatment: 09/17/18 23:00 Impression: 53 year old female presents complaining of abdominal pain associated with nausea and multiple episodes of vomiting that began this afternoon. ro choelcystitis Plan: -- Labs -- Chest X-ray -- Morphine, IV Fluids, Zofran inj -- HCG, Qualitative Urine -- Urinalysis -- Abd and pelvis CT IV Contrast -- Reassess and disposition Prior Visits: Notes and results from previous visits were reviewed. Progress Notes: Ultrasound of the abdomen, complete. Electronically signed on Sep 18, 2018 1:33:49 AM EST by: Colt Blandon M.D Impression: Cholelithiasis. Distended gallbladder suggestive of developing acute cholecystitis. 09/18/18 01:44 CT SCAN OF THE ABDOMEN AND PELVIS WITH CONTRAST. Electronically signed on Sep 18, 2018 1:47:46 AM EST by: Colt Blandon M.D. IMPRESSION: Mild changes of acute cholecystitis. No perforation or abscess formation. 09/18/18 01:52 Case discussed with surgical garment inspector who is aware and agrees with the plan for surgical consult under Dr. Stiles. 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 I have reviewed the chart and agree that the record accurately reflects my personal performance of the history, physical exam, medical decision making, and the department course for this patient. I have also personally directed, reviewed, and agree with the discharge instructions and disposition. Disposition/Present on Arrival - Present on Arrival Any Indicators Present on Arrival: No History of DVT/PE: No History of Uncontrolled Diabetes: No Urinary Catheter: No History of Decub. Ulcer: No History Surgical Site Infection Following: None - Disposition Have Diagnosis and Disposition been Completed?: Yes Diagnosis: Cholecystitis Disposition: HOSPITALIZED Disposition Time: 22:00 Condition: STABLE Referrals: Manav Gonzalez MD [Primary Care Provider] - Follow up with primary Forms: [employer] ([place])
[2018-09-17 23:53] LABS: BASO # 0.02 K/mm3 (0.0-2.0); BASO % 0.3 % (0.0-3.0); EOS # 0.1 (0.0-0.7); EOS % 1.3 % (1.5-5.0); HEMOGLOBIN 12.7 g/dL (12.0-16.0); LYMPH # 1.2 (1.2-3.4); LYMPH % 16.9 % (22.0-35.0); MEAN CELL VOLUME 76.2 fl (80.0-105.0); MEAN CORPUSCULAR HEMOGLOBIN 24.4 pg (25.0-35.0); MEAN PLATELET VOLUME 9.9 fl (7.0-11.0); MONO # 0.4 (0.1-0.6); MONO % 5.6 % (1.0-6.0); RBC 5.21 10^6/uL (3.5-6.1); RED CELL DISTRIBUTION WIDTH 17.1 % (11.5-14.5); WHITE BLOOD COUNT 7.2 10^3/uL (4.5-11.0)
[2018-09-18 00:02] LABS: INR 1.01; PARTIAL THROMBOPLASTIN TIME 37.2 Seconds (26.9-38.3); PROTHROMBIN TIME 11.2 SECONDS (9.4-12.5)
[2018-09-18 00:06] LABS: ALB/GLOB RATIO 1.2 (1.1-1.8); ALBUMIN 4.7 g/dL (3.0-4.8); ALT/SGPT 284 U/L (7-56); AST/SGOT 177 U/L (14-36); BILIRUBIN,DIRECT 0.6 mg/dL (0.0-0.4); BLOOD UREA NITROGEN 23 mg/dL (7-21); CALCIUM 9.3 mg/dL (8.4-10.5); GFR NON-AFRICAN AMERICAN > 60; LIPASE 71 U/L (23-300)
[2018-09-18] MEDS ORDERED: Iohexol 350 MG/100 ML VIAL ONE (00:52)
[2018-09-18] MEDS ORDERED: Piperacillin/Tazobact 3.375 gm 100 ML IVPB STA (01:34)
[2018-09-18] MEDS ORDERED: Morphine 4 mg/ml ISec IVP STA (02:10)
[2018-09-18] MEDS ORDERED: Sodium Chloride 0.9% 1,000 ML IV STA (03:27)
[2018-09-18 03:42] VITALS: BMI 32.9
[2018-09-18] MEDS ORDERED: Influenza Vaccine 60 mcg/0.5 mL SYR (4YR UP) IM ONE (03:43)
[2018-09-18] MEDS ORDERED: Pneumococcal 23-Valent Vaccine IM ONE (03:43)
--- NOTE | 2018-09-18 07:40 | CP.PCM.CON ---
History of Present Illness - History of Present Illness History of Present Illness: Surgery: Dr. Stiles CC: Abdominal pain HPI: 53F w. hx of gastric sleeve sx 5 yrs ago presents to ED w. abdominal pain that started yesterday afternoon after eating a turkey burger. She has had the pain intermittently in the past, however it was much more severe yesterday. She states that the pain is constant and is in epigastric area. Pain is accompanied by nausea and bilious emesis. She denies diarrhea. She does have chills, no fever. CT/US done in ED consistent w. cholecystitis. PMH: HTN, anxiety, kidney stones PSH: hysterectomy, L femur, gastric band/sleeve Meds: MAR reviewed NKDA Social: +Tobacco/ETOH, no drugs Fhx: Non-contributory Review of Systems - Review of Systems All systems: reviewed and no additional remarkable complaints except (HPI) Past Patient History - Infectious Disease Hx of Infectious Diseases: None - Tetanus Immunizations Tetanus Immunization: Up to Date - Past Medical History & Family History Past Medical History?: Yes - Past Social History Smoking Status: Light Smoker < 10 Cigarettes Daily - CARDIAC Hx Cardiac Disorders: No - PULMONARY Hx Respiratory Disorders: No - NEUROLOGICAL Hx Neurological Disorder: No - HEENT Hx HEENT Problems: No - RENAL Hx Chronic Kidney Disease: Yes Hx Kidney Stones: Yes (passed without intervention) - ENDOCRINE/METABOLIC Hx Endocrine Disorders: Yes Hx Hyperthyroidism: Yes (childhood no longer) - HEMATOLOGICAL/ONCOLOGICAL Hx Blood Disorders: No - INTEGUMENTARY Hx Dermatological Problems: No - MUSCULOSKELETAL/RHEUMATOLOGICAL Hx Falls: No - GASTROINTESTINAL Other/Comment: angulated sigmoid colon - GENITOURINARY/GYNECOLOGICAL Hx Genitourinary Disorders: Yes Other/Comment: fibroid uterus - PSYCHIATRIC Hx Substance Use: No - SURGICAL HISTORY Hx Hysterectomy: Yes Hx Orthopedic Surgery: Yes - ANESTHESIA Hx Anesthesia: Yes Hx Anesthesia Reactions: Yes (mucus salvia build up) Hx Malignant Hyperthermia: No Meds Allergies/Adverse Reactions: Allergies Allergy/AdvReac Type Severity Reaction Status Date / Time seasonal allergies Allergy Severe CONGESTION Uncoded 09/17/18 23:01 - Medications Medications: Current Medications Sodium Chloride (Sodium Chloride 0.9%) 1,000 mls @ 100 mls/hr IV .Q10H STA Stop: 09/18/18 13:26 Last Admin: 09/18/18 03:59 Dose: 100 mls/hr Physical Exam - Constitutional Appears: Non-toxic, No Acute Distress - Head Exam Head Exam: ATRAUMATIC, NORMOCEPHALIC - Eye Exam Eye Exam: EOMI - ENT Exam ENT Exam: Mucous Membranes Moist - Neck Exam Neck exam: Positive for: Full Rom - Respiratory Exam Respiratory Exam: NORMAL BREATHING PATTERN. absent: Accessory Muscle Use, Respiratory Distress - GI/Abdominal Exam GI & Abdominal Exam: Soft, Tenderness (epigastric). absent: Distended, Firm, Guarding, Rigid - Extremities Exam Extremities exam: Positive for: pedal pulses present. Negative for: calf tenderness - Neurological Exam Neurological exam: Alert, Oriented x3 - Psychiatric Exam Psychiatric exam: Normal Affect, Normal Mood - Skin Skin Exam: Dry, Warm Results - Vital Signs Recent Vital Signs: Last Vital Signs Temp 98.1 F 09/18/18 04:11 Pulse 66 09/18/18 04:11 Resp 18 09/18/18 04:11 BP 174/86 H 09/18/18 04:11 Pulse Ox 94 L 09/18/18 04:11 - Labs Result Diagrams: 09/17/18 23:30 09/17/18 23:30 Labs: Laboratory Results - last 24 hr 09/17/18 09/17/18 09/17/18 23:30 23:30 23:30 WBC 7.2 D RBC 5.21 Hgb 12.7 Hct 39.7 MCV 76.2 L MCH 24.4 L MCHC 32.0 RDW 17.1 H Plt Count 249 MPV 9.9 Neut % (Auto) 75.9 H Lymph % (Auto) 16.9 L Morris % (Auto) 5.6 Eos % (Auto) 1.3 L Baso % (Auto) 0.3 Lymph # (Auto) 1.2 Morris # (Auto) 0.4 Eos # (Auto) 0.1 Baso # (Auto) 0.02 Absolute Neuts (auto) 5.43 PT 11.2 INR 1.01 APTT 37.2 Sodium 139 Potassium 3.9 Chloride 105 Carbon Dioxide 23 Anion Gap 15 BUN 23 H Creatinine 0.8 Est GFR ( Amer) > 60 Est GFR (Non-Af Amer) > 60 Random Glucose 143 H Calcium 9.3 Magnesium 2.3 H Total Bilirubin 0.7 Direct Bilirubin 0.6 H AST 177 H D ALT 284 H Alkaline Phosphatase 181 H D Total Protein 8.9 H Albumin 4.7 Globulin 4.1 Albumin/Globulin Ratio 1.2 Lipase 71 Blood Type Antibody Screen BBK History Checked 09/18/18 03:00 WBC RBC Hgb Hct MCV MCH MCHC RDW Plt Count MPV Neut % (Auto) Lymph % (Auto) Morris % (Auto) Eos % (Auto) Baso % (Auto) Lymph # (Auto) Morris # (Auto) Eos # (Auto) Baso # (Auto) Absolute Neuts (auto) PT INR APTT Sodium Potassium Chloride Carbon Dioxide Anion Gap BUN Creatinine Est GFR ( Amer) Est GFR (Non-Af Amer) Random Glucose Calcium Magnesium Total Bilirubin Direct Bilirubin AST ALT Alkaline Phosphatase Total Protein Albumin Globulin Albumin/Globulin Ratio Lipase Blood Type O NEGATIVE Antibody Screen Negative BBK History Checked Patient has bt - Imaging and Cardiology CT scan - abdomen Status: Image reviewed by me, Report reviewed by me US - abdomen Status: Image reviewed by me, Report reviewed by me Assessment & Plan - Assessment and Plan (Free Text) Assessment: 53F w. biliary colic -NPO -IVF -pain meds -zofran -will d/w attending timing of surgery in patient vs. elective Zemaitis PGY4
[2018-09-18] MEDS: HYDROmorphone 0.5 mg/0.5 ml ISec IVP PRN ×3 (08:52→20:51)
--- NOTE | 2018-09-18 09:39 | RAD ---
Date of service: 09/17/2018 HISTORY: abd pain COMPARISON: Comparison chest 09/14/2018 FINDINGS: LUNGS: Mild bibasilar atelectasis PLEURA: No significant pleural effusion identified, no pneumothorax apparent. CARDIOVASCULAR: No aortic atherosclerotic calcification present. Heart size borderline-mildly enlarged. No pulmonary vascular congestion. OSSEOUS STRUCTURES: There is mild dextroscoliosis centered in the mid to lower thoracic region VISUALIZED UPPER ABDOMEN: Normal. OTHER FINDINGS: None. IMPRESSION: Mild bibasilar atelectasis.
[2018-09-18] MEDS: cefTRIAXone 1 gm 1 GM/100 ML BAG IVPB SCH (11:10)
--- NOTE | 2018-09-18 12:11 | CT ---
Date of service: 09/18/2018 PROCEDURE: CT Abdomen and Pelvis.. HISTORY: Abdominal pain vomiting COMPARISON: Comparison made with prior CT scan abdomen pelvis 05/28/2017. TECHNIQUE: Contiguous axial images of the abdomen and pelvis performed following intravenous injection of Omnipaque contrast material. Additional 2D sagittal and coronal reformats generated. Radiation dose: Total exam DLP = 981.72 mGy-cm. This CT exam was performed using one or more of the following dose reduction techniques: Automated exposure control, adjustment of the mA and/or kV according to patient size, and/or use of iterative reconstruction technique. FINDINGS: LOWER THORAX: Heart size within range of normal. No significant pericardial effusion. There is a small hiatal hernia with slight thick-walled appearance of the distal esophagus likely due to protrusion gastric mucosa however esophagitis or other intrinsic/insists invasive wall lesion not excluded. Note also made of fluid layering within the distal esophagus likely due to reflux however dysmotility or some combination of the 2 not excluded. Minor scarring seen both lung bases including the lingular and middle lobe regions. The LIVER: Liver exhibits normal size measuring approximately 17.6 cm in CC dimension. No obvious hepatic masses or collections. Mild fatty hepatic infiltration. Minimal central intrahepatic biliary ductal dilatation. Portal and splenic veins are opacified. Lesion or ductal dilatation. GALLBLADDER AND BILE DUCTS: There is marked gallbladder distention. No obvious intraluminal gallbladder calculi. Findings could be secondary to nonfasting state however consider follow-up of gallbladder ultrasound to assess for acute acalculous cholecystitis.. PANCREAS: There is a very tiny approximately 3.3 mm low-attenuation focus seen in the posterior body/pancreatic tail junction best seen on axial series 3, image number [id number]. This could represent small amount of fat however the possibility of a tiny pancreatic cyst. The possibility of a tiny IPMN or other cystic lesion not excluded. Follow-up CT scan at interval recommended to assess stability.. SPLEEN: Unremarkable. No splenomegaly. ADRENALS: Unremarkable. KIDNEYS AND URETERS: Kidneys demonstrate symmetric nephrograms. No evidence of nephrolithiasis or hydronephrosis. Redemonstrated is a exophytic cyst arising from the lower pole cortex right kidney that measures approximately 3.1 x 2.5 cm.. BLADDER: The urinary bladder is incompletely distended which may account for slight thick-walled appearance. Correlation with urinalysis to exclude cystitis. REPRODUCTIVE: Hysterectomy. APPENDIX: Appendix not seen with certainty however no obvious inflammatory changes right lower quadrant of the abdomen. BOWEL: Evaluation of the bowel is limited due to the lack of oral contrast material. Apparent postoperative changes of the stomach that may represent gastric sleeve procedure however clinical correlation with surgical history. Visualized loops of small bowel exhibit normal contour and caliber. No evidence of acute mechanical small bowel obstruction. Diverticulosis again noted.. There appears to be some mild localized wall thickening of the mid and distal sigmoid colon; findings are of uncertain etiology however early acute diverticulitis versus other intrinsic/invasive wall lesion should be excluded. Recommend follow-up of colonoscopy for further evaluation. PERITONEUM: Unremarkable. No fluid collection. No free air. LYMPH NODES: Unremarkable. No enlarged lymph nodes. VASCULATURE: Unremarkable. No aortic aneurysm. No aortic atherosclerotic calcification or mural plaque present. BONES: Mild multilevel degenerative spondylosis of the lower thoracic and lumbar spine. There is also a mild dextroscoliosis centered at the lower thoracic region. OTHER FINDINGS: None. IMPRESSION: Diverticulosis again noted.. There appears to be some mild localized wall thickening of the mid and distal sigmoid colon; findings are of uncertain etiology however early acute diverticulitis versus other intrinsic/invasive wall lesion should be excluded. Recommend follow-up of colonoscopy for further evaluation. Marked gallbladder markedly distended with no obvious intraluminal gallbladder calculi. Findings may be secondary to nonfasting state however recommend follow-up of right upper quadrant ultrasound to exclude acute acalculous cholecystitis. Note that this report was placed in PA review folder for follow up. Mild fatty hepatic infiltration. Again noted is a exophytic cyst arising from the lower pole right kidney.
--- NOTE | 2018-09-18 12:44 | US ---
Date of service: 09/18/2018 HISTORY: Abnormal liver function tests COMPARISON: Comparison made with concurrent CT scan abdomen pelvis. Comparison also made with prior abdominal ultrasound dated 10/04/2007 TECHNIQUE: Sonographic evaluation of the abdomen. FINDINGS: LIVER: Measures 18.0 cm. Liver demonstrates increased echotexture consistent with fatty infiltration.. No obvious hepatic masses collections or calcifications... GALLBLADDER: Cholelithiasis. No pericholecystic fluid collections no sonographic Hdz sign reported.. COMMON BILE DUCT: Measures 5.7 mm. No stones. No dilatation. PANCREAS: Pancreas not visualized due to body habitus and bowel gas RIGHT KIDNEY: Measures 11.3 x 4.4 x 4.7cm. Normal echogenicity. No calculus, mass, or hydronephrosis. Exophytic lower pole cyst measuring 3.2 cm in greatest dimension LEFT KIDNEY: Measures 10.7 x 5.1 x 5.7cm. Normal echogenicity. No calculus, mass, or hydronephrosis. SPLEEN: Normal in size and contour. No mass. AORTA: No aneurysmal dilatation. IVC: Unremarkable. OTHER FINDINGS: None. IMPRESSION: Fatty hepatic infiltration. Cholelithiasis. No pericholecystic fluid collections. No reported sonographic Hdz sign.
[2018-09-18] MEDS: metroNIDAZOLE IV 500 mg/100 ml 500 MG/100 ML BAG IVPB SCH ×2 (14:28→22:08)
--- NOTE | 2018-09-18 20:11 | CARD ---
APPROVED REPORT Date of service: 09/18/2018 EKG Measurement Heart [id number] 172P-2 [id number] <Conclusion> Normal sinus rhythm Low voltage QRS Borderline ECG
[2018-09-19] MEDS: HYDROmorphone 0.5 mg/0.5 ml ISec IVP PRN ×4 (02:11→22:04)
[2018-09-19] MEDS: metroNIDAZOLE IV 500 mg/100 ml 500 MG/100 ML BAG IVPB SCH ×3 (06:29→22:05)
[2018-09-19 07:05] LABS: BASO # 0.03 K/mm3 (0.0-2.0); BASO % 0.5 % (0.0-3.0); EOS # 0.3 (0.0-0.7); EOS % 4.3 % (1.5-5.0); LYMPH # 1.5 (1.2-3.4); LYMPH % 26.2 % (22.0-35.0); MEAN CELL VOLUME 77.8 fl (80.0-105.0); MEAN CORPUSCULAR HEMOGLOBIN 23.3 pg (25.0-35.0); MEAN PLATELET VOLUME 9.8 fl (7.0-11.0); MONO # 0.6 (0.1-0.6); MONO % 10.7 % (1.0-6.0); RBC 4.72 10^6/uL (3.5-6.1); RED CELL DISTRIBUTION WIDTH 17.6 % (11.5-14.5); WHITE BLOOD COUNT 5.9 10^3/uL (4.5-11.0)
[2018-09-19 07:40] LABS: ALB/GLOB RATIO 1.1 (1.1-1.8); ALBUMIN 3.7 g/dL (3.0-4.8); ALT/SGPT 184 U/L (7-56); AST/SGOT 110 U/L (14-36); BLOOD UREA NITROGEN 16 mg/dL (7-21); CALCIUM 8.5 mg/dL (8.4-10.5); GFR NON-AFRICAN AMERICAN > 60
--- NOTE | 2018-09-19 07:46 | CP.PCM.PN ---
Subjective - Date & Time of Evaluation Date of Evaluation: 09/19/18 Time of Evaluation: 06:35 - Subjective Subjective: Surgery Progress note. Dr. Stiles. Dr. Monte covering Pt seen and examined at bedside. No acute events overnight. No N/V/D. Does report a Tmax of 101.1F yesterday. States that the abdominal pain is improving. No new complaints. Would like to shower today. States that she is hungry and requesting to start some liquids. Objective - Vital Signs/Intake and Output Vital Signs (last 24 hours): Temp Pulse Resp BP Pulse Ox 99.9 F H 66 18 174/86 H 94 L 09/18/18 16:46 09/18/18 04:11 09/18/18 04:11 09/18/18 04:11 09/18/18 04:11 - Medications Medications: Current Medications Acetaminophen (Tylenol 325mg Tab) 650 mg PO Q4H PRN PRN Reason: Fever > 101 F Last Admin: 09/18/18 15:46 Dose: 650 mg Famotidine (Pepcid) 20 mg IVP BID DELMER Last Admin: 09/18/18 17:05 Dose: 20 mg Hydromorphone HCl (Dilaudid) 0.5 mg IVP Q4H PRN PRN Reason: Pain, severe (8-10) Last Admin: 09/19/18 02:11 Dose: 0.5 mg Metronidazole (Flagyl) 500 mg in 100 mls @ 100 mls/hr IVPB Q8 DELMER; Protocol Last Admin: 09/19/18 06:29 Dose: 100 mls/hr Ceftriaxone Sodium (Rocephin 1 Gram Ivpb) 1 gm in 100 mls @ 100 mls/hr IVPB DAILY [facility]; Protocol Last Admin: 09/18/18 11:10 Dose: 100 mls/hr Ondansetron HCl (Zofran Inj) 4 mg IVP Q6H PRN PRN Reason: Nausea/Vomiting Last Admin: 09/19/18 02:10 Dose: 4 mg - Labs Labs: 09/19/18 06:00 09/19/18 06:00 PT 11.2 SECONDS (9.4-12.5) 09/17/18 23:30 INR 1.01 09/17/18 23:30 APTT 37.2 Seconds (26.9-38.3) 09/17/18 23:30 - Constitutional Appears: Well, Non-toxic, No Acute Distress - Head Exam Head Exam: ATRAUMATIC, NORMAL INSPECTION, NORMOCEPHALIC - Eye Exam Eye Exam: EOMI, Normal appearance. absent: Scleral icterus - ENT Exam ENT Exam: Mucous Membranes Moist - Cardiovascular Exam Cardiovascular Exam: RRR. absent: JVD - GI/Abdominal Exam GI & Abdominal Exam: Soft. absent: Distended, Firm, Guarding, Rigid, Rebound Additional comments: mild RUQ tenderness to palpation. NO rebound, no guarding. - Extremities Exam Extremities Exam: Normal Inspection. absent: Calf Tenderness - Neurological Exam Neurological Exam: Alert, Awake, Oriented x3 - Psychiatric Exam Psychiatric exam: Normal Affect, Normal Mood - Skin Skin Exam: Dry, Intact, Normal Color, Warm Assessment and Plan - Assessment and Plan (Free Text) Assessment: 53yo F with biliary colic Plan: - CLD diet today - NPO past midnight tonight - If labs worsen and clinical status deteriorates, will consider OR tomorrow, 09/20 - Patient would like to wait for Dr. Stiles's return but is willing to move forward with surgery with Dr. Monte if clinical status dictates. - f/u repeat labs Further recs as per Dr. Lavell Hurt PGY2 surgery
[2018-09-19] MEDS: cefTRIAXone 1 gm 1 GM/100 ML BAG IVPB SCH (09:29)
[2018-09-19] MEDS: Sodium Chloride 0.9% 1,000 ML IV SCH (23:29)
[2018-09-20] MEDS: metroNIDAZOLE IV 500 mg/100 ml 500 MG/100 ML BAG IVPB SCH ×3 (05:58→21:19)
[2018-09-20 06:39] LABS: BASO # 0.04 K/mm3 (0.0-2.0); BASO % 0.8 % (0.0-3.0); EOS # 0.2 (0.0-0.7); EOS % 4.7 % (1.5-5.0); HEMOGLOBIN 10.8 g/dL (12.0-16.0); INR 1.14; LYMPH # 1.5 (1.2-3.4); LYMPH % 29.5 % (22.0-35.0); MEAN CELL VOLUME 76.8 fl (80.0-105.0); MEAN CORPUSCULAR HEMOGLOBIN 23.9 pg (25.0-35.0); MEAN CORPUSCULAR HGB CONC 31.1 g/dl (31.0-37.0); MEAN PLATELET VOLUME 10.3 fl (7.0-11.0); MONO # 0.5 (0.1-0.6); PARTIAL THROMBOPLASTIN TIME 34.8 Seconds (26.9-38.3); PROTHROMBIN TIME 12.9 SECONDS (9.4-12.5); RBC 4.52 10^6/uL (3.5-6.1); RED CELL DISTRIBUTION WIDTH 17.2 % (11.5-14.5); WHITE BLOOD COUNT 4.9 10^3/uL (4.5-11.0)
[2018-09-20 06:52] LABS: ALB/GLOB RATIO 1.1 (1.1-1.8); ALBUMIN 3.8 g/dL (3.0-4.8); ALT/SGPT 146 U/L (7-56); AST/SGOT 83 U/L (14-36); BLOOD UREA NITROGEN 13 mg/dL (7-21); CALCIUM 8.7 mg/dL (8.4-10.5); GFR NON-AFRICAN AMERICAN > 60
[2018-09-20 08:17] LABS: HEPATITIS B SURFACE AG Negative (NEGATIVE)
[2018-09-20 08:23] LABS: HEPATITIS A IGM NEGATIVE (NEGATIVE); HEPATITIS B CORE AB NEGATIVE (NEGATIVE)
[2018-09-20 08:35] LABS: HEPATITIS C ANTIBODY NEGATIVE (NEGATIVE)
--- NOTE | 2018-09-20 09:05 | CP.PCM.PN ---
Subjective - Date & Time of Evaluation Date of Evaluation: 09/20/18 Time of Evaluation: 07:45 - Subjective Subjective: Gerardo Brooke, PGY-[address] Stiles. Dr[address] Monte covering Patient seen and examined at bedside. No acute events reported overnight. No nausea, vomiting, diarrhea. Remains afebrile. Improving abdominal pain. Appetite present. Objective - Vital Signs/Intake and Output Vital Signs (last 24 hours): Temp Pulse Resp BP Pulse Ox 98.2 F 65 20 112/81 100 09/20/18 08:28 09/20/18 08:28 09/20/18 08:28 09/20/18 08:28 09/20/18 08:28 Intake and Output: 09/20/18 09/20/18 06:59 18:59 Intake Total 800 Balance 800 - Medications Medications: Current Medications Acetaminophen (Tylenol 325mg Tab) 650 mg PO Q4H PRN PRN Reason: Fever > 101 F Last Admin: 09/18/18 15:46 Dose: 650 mg Famotidine (Pepcid) 20 mg IVP BID DELMER Last Admin: 09/19/18 17:37 Dose: 20 mg Hydromorphone HCl (Dilaudid) 0.5 mg IVP Q4H PRN PRN Reason: Pain, severe (8-10) Last Admin: 09/19/18 22:04 Dose: 0.5 mg Metronidazole (Flagyl) 500 mg in 100 mls @ 100 mls/hr IVPB Q8 DELMER; Protocol Last Admin: 09/20/18 05:58 Dose: 100 mls/hr Ceftriaxone Sodium (Rocephin 1 Gram Ivpb) 1 gm in 100 mls @ 100 mls/hr IVPB DAILY DELMER; Protocol Last Admin: 09/19/18 09:29 Dose: 100 mls/hr Sodium Chloride (Sodium Chloride 0.9%) 1,000 mls @ 100 mls/hr IV .Q10H DELMER Last Admin: 09/19/18 23:29 Dose: 100 mls/hr Ondansetron HCl (Zofran Inj) 4 mg IVP Q6H PRN PRN Reason: Nausea/Vomiting Last Admin: 09/19/18 02:10 Dose: 4 mg - Labs Labs: 09/20/18 06:15 09/20/18 06:15 PT 12.9 SECONDS (9.4-12.5) H 09/20/18 06:15 INR 1.14 09/20/18 06:15 APTT 34.8 Seconds (26.9-38.3) 09/20/18 06:15 - Additional Findings Additional findings: - Constitutional Appears: Well, Non-toxic, No Acute Distress - Head Exam Head Exam: ATRAUMATIC, NORMAL INSPECTION, NORMOCEPHALIC - Eye Exam Eye Exam: EOMI, Normal appearance. absent: Scleral icterus - ENT Exam ENT Exam: Mucous Membranes Moist - Cardiovascular Exam Cardiovascular Exam: RRR. absent: JVD - GI/Abdominal Exam GI & Abdominal Exam: Soft. absent: Distended, Firm, Guarding, Rigid, Rebound Additional comments: mild RUQ tenderness to palpation. No rebound, no guarding. - Extremities Exam Extremities Exam: Normal Inspection. absent: Calf Tenderness - Neurological Exam Neurological Exam: Alert, Awake, Oriented x3 - Psychiatric Exam Psychiatric exam: Normal Affect, Normal Mood - Skin Skin Exam: Dry, Intact, Normal Color, Warm Assessment and Plan - Assessment and Plan (Free Text) Assessment: 53 year old F with biliary colic. Plan: - C/w pain control and antibiotics - Labs stable - Hep panel negative - HIDA scan c/w acute cholecystits - NPO past midnight in advance of possible surgical intervention tomorrow Further recs as per Dr. Lavell Brooke, PGY-1
[2018-09-20] MEDS: Sodium Chloride 0.9% 1,000 ML IV SCH ×2 (09:35→21:19)
[2018-09-20 09:46] LABS: PH,URINE 5.5 (4.7-8.0); URINE BILIRUBIN NEGATIVE (NEGATIVE); URINE BLOOD NEGATIVE (NEGATIVE); URINE GLUCOSE (UA) NEGATIVE (NEGATIVE); URINE LEUKOCYTE ESTERASE NEGATIVE Leu/uL (NEGATIVE); URINE PROTEIN NEGATIVE mg/dL (<30 mg/dL); URINE UROBILINOGEN 0.2 E.U./dL (<1 E.U./dL)
[2018-09-20 09:47] LABS: URINE APPEARANCE CLEAR (CLEAR); URINE COLOR YELLOW (YELLOW)
[2018-09-20 09:50] LABS: URINE BACTERIA FEW /hpf; URINE RBC 0 - 2 /hpf (0-2); URINE WBC 0 - 2 /hpf (0-6)
[2018-09-20] MEDS: cefTRIAXone 1 gm 1 GM/100 ML BAG IVPB SCH (10:25)
--- NOTE | 2018-09-20 14:16 | NM ---
Date of service: 09/20/2018 PROCEDURE: Nuclear Medicine Hepatobiliary Scan HISTORY: r/o cholecystitis COMPARISON: None available. TECHNIQUE: 5.6 mCi of technetium 99m Mebrofenin was administered intravenously. Planar images of the abdomen were obtained at 5 min intervals to 60 mins. Delayed images were also obtained. FINDINGS: LIVER: Timely and homogenous uptake. COMMON BILE DUCT: identified at 15 mins. GALLBLADDER: Nonvisualized even after 4 hr SMALL BOWEL: Identified at 15 mins. IMPRESSION: Nonvisualization of the gallbladder consistent with acute cholecystitis
[2018-09-20] MEDS ORDERED: Alum-Mag Hydrox-Simethicone Susp (30 mL) PO ONE ×2 (16:19→21:00)
[2018-09-20] MEDS ORDERED: DiphenhydrAMINE 50 mg/ml Inj IVP ONE (21:17)
[2018-09-21] MEDS: metroNIDAZOLE IV 500 mg/100 ml 500 MG/100 ML BAG IVPB SCH ×2 (05:09→22:01)
[2018-09-21] MEDS ORDERED: Iohexol 240 (50 ml) ONE (07:21)
[2018-09-21] MEDS ORDERED: Bupivacaine 0.5% 50 ML IJ ONE (07:21)
[2018-09-21 07:56] VITALS: RESP 20
[2018-09-21] MEDS ORDERED: Midazolam 2 MG/2 ML VIAL ONE ×2 (08:08→09:59)
[2018-09-21] MEDS ORDERED: Propofol 10 mg/ml Inj (20 ML) ONE (08:08)
[2018-09-21] MEDS ORDERED: Rocuronium 10 mg/ml (5 ml) ONE (08:11)
[2018-09-21] MEDS ORDERED: Bupivacaine 0.5% Inj(30mL) IJ ONE ×2 (08:30)
[2018-09-21] MEDS ORDERED: Sevoflurane - Inhalation Anesthetic Liq (250 ml) ONE (09:42)
[2018-09-21] MEDS ORDERED: Neostigmine Methylsulfate 3mg/3ml Syringe IV ONE (09:46)
[2018-09-21] MEDS ORDERED: Glycopyrrolate 0.2 mg/ml (2ml vial) ONE (09:55)
[2018-09-21] MEDS ORDERED: HYDROmorphone 0.5 mg/0.5 ml ISec IVP PRN (09:59)
[2018-09-21] MEDS ORDERED: Lactated Ringer's 1,000 ML IV SCH (10:00)
[2018-09-21] MEDS ORDERED: HYDROmorphone 0.5 mg/0.5 ml ISec IVP ONE ×2 (10:10→10:40)
--- NOTE | 2018-09-21 10:10 | PCM.SURG1 ---
Surgeon's Initial Post Op Note - Surgeon's Notes Surgeon: Dr. Monte Air Conditioning Coil Assembler: PGY4; Blu PGY2; Chele MS3 Type of Anesthesia: General Endo, Local Anesthesia Administered By: Dr. Dayana William Pre-Operative Diagnosis: Cholecystitis Operative Findings: See operative report. Inflammed Gallbladder with sludge and stones. Aborted intraoperative cholangiogram due unable to cannulate cholangio cath. Post-Operative Diagnosis: same Operation Performed: Laparascopic Cholecystectomy Specimen/Specimens Removed: Gallbladder Estimated Blood Loss: EBL {In ML}: 30 Blood Products Given: N/A Drains Used: No Drains Date of Surgery/Procedure: 09/21/18 Time of Surgery/Procedure: 10:10
[2018-09-21] MEDS ORDERED: HYDROmorphone 0.5 mg/0.5 ml ISec ONE ×2 (10:18→10:41)
[2018-09-21] MEDS: HYDROmorphone 0.5 mg/0.5 ml ISec IVP PRN ×2 (12:28→22:01)
[2018-09-21] MEDS ORDERED: Alum-Mag Hydrox-Simethicone Susp (30 mL) PO ONE (14:30)
--- NOTE | 2018-09-21 15:28 | PN ---
DATE: 09/20/2018 SUBJECTIVE: The patient is a 53-year-old female with a past medical history positive for gastric sleeve surgery, anxiety, fibroid tumors, history of diverticulitis, history of renal calculi, who was admitted on 09/18/2018 with acute cholecystitis. CAT scan and ultrasound were positive for acute cholecystitis. PHYSICAL EXAMINATION: The patient had a positive Hdz's punch, positive right sided CVA tenderness and tenderness on palpation of the right upper quadrant of the abdomen. Onset of her pain symptoms were after eating a hamburger. The patient is being followed by Dr. Monte covering for Dr. Stiles. The pain had somewhat subsided over the weekend. She was found to have O negative type blood. Her liver enzymes came down somewhat. The total bilirubin remained at 0.7, AST/ALT slowly came down to 110/184 today and alkaline phosphatase was 186, came down to 106. She did spike a temperature of 101.1 overnight which was treated with Tylenol, however. I received a phone call from the operating room surgical technologist stating that the HIDA scan was positive and the patient will be scheduled for OR. Jordan Gonzalez MD
[2018-09-21] MEDS: Oxycodone/Acetaminophen 5/325 mg Tab PO PRN (16:25)
--- NOTE | 2018-09-21 20:08 | PN ---
DATE: 09/21/2018 SUBJECTIVE: Patient was seen this Thursday mid-day in room 368, bed 2 with her at the bedside. She just came back from the OR where laparoscopic cholecystectomy was done. PHYSICAL EXAMINATION: GENERAL: She is awake, alert, clear, moving all extremities. LUNGS: Show good aeration right and left. HEART: Regular, not tachycardic. ABDOMEN: Fresh wounds present. EXTREMITIES: No edema. IMPRESSION: Status post cholecystectomy. Patient is awake, alert, moving all extremities. PLAN: Most likely for discharge tomorrow morning. Manav Gonzalez MD
--- NOTE | 2018-09-21 23:55 | OP ---
PROCEDURE DATE: 09/21/2018 TIME OF SURGERY: 10:10 a.m. SURGEON: Manav Monte MD ASSISTANTS: Ren Tucker DO, PGY-4; Larry Hurt DO, PGY-2; and Jose Elaine, medical student 3. TYPE OF ANESTHESIA: General endotracheal tube anesthesia intubation, local anesthesia with 0.5% Marcaine. ANESTHESIA ADMINISTERED BY: Ankit William MD PREOPERATIVE DIAGNOSIS: Cholecystitis. POSTOPERATIVE DIAGNOSIS: Cholecystitis. OPERATION PERFORMED: Laparoscopic cholecystectomy and attempted intraoperative cholangiogram. SPECIMENS REMOVED: Gallbladder. ESTIMATED BLOOD LOSS: 30 mL. BLOOD PRODUCTS: No blood products were given. DRAINS: No drains were used. INDICATIONS: This is a 53-year-old female who came in with right upper quadrant pain, nausea and vomiting, and workup was found to have cholelithiasis with elevated AST and ALT. Findings were consistent with cholecystitis. Preoperative HIDA scan did show a nonvisualized gallbladder. The patient was consented for laparoscopic cholecystectomy, possible open cholecystectomy with intraoperative cholangiogram. All risks and benefits of the surgery were discussed in detail with the patient who accepted to proceed with the procedure. DESCRIPTION OF PROCEDURE: The patient was placed on the operating table in the supine position. General anesthesia was induced by the anesthesiology team. A time-out was completed verifying the correct patient, procedure, site, positioning, and special equipments prior to beginning the procedure. The abdomen was prepped and draped in the usual sterile fashion. An incision was made in the natural skin line just above the umbilicus. The fascia was elevated and incised using two Jah clamps. Peritoneum was elevated and incised. An entry into the peritoneum was confirmed visually and no bowel was noted in the vicinity of the incision. A Samaria clamp was used to insert into the peritoneum and stretched the fascia for the Natali cannula 12-mm port to be placed under direct vision. Towel clamp was used to obtain a tight seal at the level of the skin around the port. The abdomen was insufflated with carbon dioxide to a pressure of 15 mmHg. The patient tolerated the insufflation well. Laparoscope was inserted and the abdomen was inspected thoroughly. No injuries from initial trocar placement were noted. Two additional trocars were then inserted in the following locations. A 5-mm trocar was inserted in the subxiphoid location, a 5-mm port was located in the right lateral position, and another second 5-mm port was placed in the right lateral midclavicular line. The abdomen was inspected and no abnormalities were found. The table was then placed in the reverse Trendelenburg position with the right side air planed up. The fundus of the gallbladder was then grasped with a nontraumatic laparoscopic instrument, and the liver was retracted caudally and towards the right shoulder exposing the remainder of the gallbladder pathology and anatomy. There were few adhesions with the proximal portion of the gallbladder to the omentum which were easily swept away with nontraumatic graspers. The dome of the gallbladder was grasped with an atraumatic grasper past to the lateral port and retracted over the dome of the liver. The infundibulum was then grasped with an atraumatic grasper through the midclavicular port and retracted towards the right lower quadrant. This maneuver exposed Calot's triangle. The peritoneum overlying the gallbladder infundibulum was then incised, and the cystic duct and cystic artery were attempted to be identified and circumferentially dissected. A tubular structure directly overlying the cystic duct was clipped using 10-mm clips and cut. The cystic duct was then isolated and freed up and one clearly single structure was exiting the gallbladder and down into the common bile duct was identified. It was then clipped at the gallbladder level. A small incision was made into the cystic duct. A cholangiogram catheter was attempted to be inserted via the neck. The cholangiogram catheter was unable to be passed through due to the angle of the cholangiogram catheter insertion. Nontraumatic graspers were used to ensure no retained stones in the remnant cystic duct were present. We were still unable to pass the cholangiogram catheter to the cystic duct, and the intraoperative cholangiogram was aborted. The cystic duct was then clipped three times and then divided close to the gallbladder. The gallbladder was then dissected from its peritoneal attachments by electrocautery. No other structures were identified entering the gallbladder in a single structure, which seemed to be an apparent artery was then clipped and dissected using electrocautery. During the retraction at the infundibulum of the gallbladder, some mild spillage of gallbladder contents were noted and immediately suctioned out. The gallbladder was then dissected from its peritoneal attachments completely by use of electrocautery. Hemostasis was checked throughout, and the gallbladder was removed from the liver bed ensuring good hemostasis throughout. An EndoCatch bag was then inserted once the gallbladder was thoroughly removed, and the EndoCatch bag was used to remove the gallbladder through the 12-mm trocar insertion site at the umbilicus. The gallbladder was easily removed via this insertion. After removal of the gallbladder and handing off the specimen to the table, the gallbladder fossa was copiously irrigated with saline and ensured hemostasis was obtained. There was no evidence of bleeding from the gallbladder fossa or the cystic artery or any leakage of bile from the cystic duct stump. Approximately 1 L to 1.5 L of saline was used to thoroughly irrigated the gallbladder fossa. Suction was used to suck up any small stones or sludge, which may have spilled during the procedure. Multiple suctions and irrigations until clear fluid was returned. The gallbladder fossa was inspected once again to ensure hemostasis. All the secondary trocars were removed under direct vision. No bleeding was noted at the trocar site. The laparoscope was then withdrawn, and the umbilical trocar was removed. The abdomen was allowed to collapse, and the anesthesia team gave a large breadth to ensure optimal evacuation of the pneumoperitoneum. The fascia of the 10-mm trocar site at the umbilicus was closed with a simple 0 Vicryl suture. The skin was closed with subcuticular sutures of 4-0 Monocryl, and topical skin adhesive Dermabond was used on the top. The three 5-mm trocar ports were closed with subcuticular sutures of 4-0 Monocryl, and topical skin adhesive Dermabond was used. Just prior to closure, 0.5% Marcaine was used at all skin incisions for local anesthetic. The patient tolerated the procedure well and was taken to the postanesthesia care unit in stable condition. Larry Hurt DO Manav Monte MD
[2018-09-22] MEDS: HYDROmorphone 0.5 mg/0.5 ml ISec IVP PRN (01:52)
[2018-09-22] MEDS: metroNIDAZOLE IV 500 mg/100 ml 500 MG/100 ML BAG IVPB SCH (06:51)
[2018-09-22 07:08] LABS: BASO # 0.01 K/mm3 (0.0-2.0); BASO % 0.2 % (0.0-3.0); EOS # 0.1 (0.0-0.7); EOS % 2.1 % (1.5-5.0); HEMOGLOBIN 11.7 g/dL (12.0-16.0); LYMPH # 1.1 (1.2-3.4); LYMPH % 17.1 % (22.0-35.0); MEAN CORPUSCULAR HEMOGLOBIN 23.8 pg (25.0-35.0); MEAN CORPUSCULAR HGB CONC 31.4 g/dl (31.0-37.0); MEAN PLATELET VOLUME 10.2 fl (7.0-11.0); MONO # 0.7 (0.1-0.6); MONO % 11.3 % (1.0-6.0); RBC 4.91 10^6/uL (3.5-6.1); RED CELL DISTRIBUTION WIDTH 17.1 % (11.5-14.5); WHITE BLOOD COUNT 6.6 10^3/uL (4.5-11.0)
[2018-09-22 07:40] LABS: ALB/GLOB RATIO 1.2 (1.1-1.8); ALBUMIN 4.4 g/dL (3.0-4.8); ALT/SGPT 119 U/L (7-56); AST/SGOT 99 U/L (14-36); BLOOD UREA NITROGEN 9 mg/dL (7-21); CALCIUM 8.9 mg/dL (8.4-10.5); GFR NON-AFRICAN AMERICAN > 60
[2018-09-22 08:12] VITALS: BP 123/85; PULSE 81; TEMP 98.4; O2SAT 94
--- NOTE | 2018-09-22 08:12 | HP ---
ADMITTING HISTORY AND PHYSICAL HISTORY OF PRESENT ILLNESS: The patient is a 53-year-old female who presented to the emergency room, complaining of right upper quadrant pain, onset was after eating a hamburger. She is known to have a past medical history positive for gastric sleeve surgery, anxiety, uterine fibroids. She passed a renal calculus in the distant past. She also had an episode of diverticulitis in 2016. SOCIAL HISTORY: She does occasionally smoke cigarettes approximately three per day. Occasionally drinks alcohol. ALLERGIES: HAS NO KNOWN MEDICAL ALLERGIES. MEDICATIONS: At the time of admission included omeprazole, ranitidine, and Xanax. PHYSICAL EXAMINATION: VITAL SIGNS: The patient is afebrile at 98.1 degrees Fahrenheit, blood pressure is 125/79, heart rate is 69. GENERAL: The patient is awake, alert and oriented. HEAD, EYES, EARS, NOSE AND THROAT: Unremarkable. LUNGS: Clear to auscultation and percussion. HEART: Regular. ABDOMEN: Shows midepigastric and right upper quadrant tenderness. There is a positive Hdz's punch and positive right-sided CVA tenderness. EXTREMITIES: Free of cyanosis, clubbing or edema. NEUROLOGIC: The patient is awake, alert and oriented. No focal neurological signs. LABORATORY STUDIES: White blood cell count is 72, hemoglobin and hematocrit are 12.7 and respectively, platelet count is 249. Sodium is 139, potassium 3.9, blood urea nitrogen 23, creatinine 0.8. Total bilirubin is 0.7. AST and ALT are elevated at 177 and 284 respectively, alkaline phosphatase is elevated at 181. EKG showed regular sinus rhythm. Chest x-ray showed bibasilar atelectasis. Ultrasound and CAT scan of the abdomen was consistent with "acute cholecystitis." The patient was evaluated by Dr. Monte who was covering for Dr. Stiles, the patient's choice of surgeon. We also asked Dr. Murdock, the security police officer, to consult on this case. The patient will be re-evaluated in the morning. Jordan Gonzalez MD
[2018-09-22] MEDS: Oxycodone/Acetaminophen 5/325 mg Tab PO PRN (08:22)
--- NOTE | 2018-09-22 11:29 | CP.PCM.PN ---
Subjective - Date & Time of Evaluation Date of Evaluation: 09/22/18 Time of Evaluation: 10:35 - Subjective Subjective: Surgery Progress note. Dr. Monte Pt seen and examined at bedside. No acute events overnight. No N/V/D. Tolerating diet. States that she would like to be discharged home today. No new complaints. Objective - Vital Signs/Intake and Output Vital Signs (last 24 hours): Temp Pulse Resp BP Pulse Ox 98.4 F 81 20 123/85 94 L 09/22/18 08:11 09/22/18 08:11 09/22/18 08:11 09/22/18 08:11 09/22/18 08:11 Intake and Output: 09/22/18 09/22/18 06:59 18:59 Intake Total 180 Balance 180 - Medications Medications: Current Medications Acetaminophen (Tylenol 325mg Tab) 650 mg PO Q4H PRN PRN Reason: Fever > 101 F Last Admin: 09/20/18 10:20 Dose: 650 mg Famotidine (Pepcid) 20 mg IVP BID DELMER Last Admin: 09/21/18 18:38 Dose: 20 mg Hydromorphone HCl (Dilaudid) 0.5 mg IVP Q4H PRN PRN Reason: Pain, severe (8-10) Last Admin: 09/22/18 01:52 Dose: 0.5 mg Metronidazole (Flagyl) 500 mg in 100 mls @ 100 mls/hr IVPB Q8 DELMER; Protocol Last Admin: 09/22/18 06:51 Dose: 100 mls/hr Ceftriaxone Sodium (Rocephin 1 Gram Ivpb) 1 gm in 100 mls @ 100 mls/hr IVPB DAILY [facility]; Protocol Last Admin: 09/20/18 10:25 Dose: 100 mls/hr Ondansetron HCl (Zofran Inj) 4 mg IVP Q6H PRN PRN Reason: Nausea/Vomiting Last Admin: 09/19/18 02:10 Dose: 4 mg Ondansetron HCl (Zofran Inj) 4 mg IVP ONCE PRN PRN Reason: Nausea/Vomiting Oxycodone/Acetaminophen (Percocet 5/325 Mg Tab) 1 tab PO Q4H PRN PRN Reason: Pain, moderate (4-7) Stop: 09/24/18 10:14 Last Admin: 09/22/18 08:22 Dose: 1 tab - Labs Labs: 09/22/18 06:45 09/22/18 06:45 PT 12.9 SECONDS (9.4-12.5) H 09/20/18 06:15 INR 1.14 09/20/18 06:15 APTT 34.8 Seconds (26.9-38.3) 09/20/18 06:15 - Constitutional Appears: Well, Non-toxic, No Acute Distress - Head Exam Head Exam: ATRAUMATIC, NORMAL INSPECTION, NORMOCEPHALIC - Eye Exam Eye Exam: EOMI, Normal appearance. absent: Scleral icterus - ENT Exam ENT Exam: Mucous Membranes Moist - Respiratory Exam Respiratory Exam: NORMAL BREATHING PATTERN. absent: Accessory Muscle Use, Respiratory Distress - Cardiovascular Exam Cardiovascular Exam: RRR. absent: JVD - Extremities Exam Extremities Exam: Normal Inspection. absent: Calf Tenderness - Neurological Exam Neurological Exam: Alert, Awake, Oriented x3 - Psychiatric Exam Psychiatric exam: Normal Affect, Normal Mood - Skin Skin Exam: Dry, Intact, Normal Color, Warm Assessment and Plan - Assessment and Plan (Free Text) Assessment: 53yo F s/p laparascopic cholecystectomy. POD 1 Plan: - Cleared for discharge home from surgical standpoint - Follow up with Dr. Monte in 7-10 days. Call for appointment Further recs as per Dr. Lavell Hurt PGY2 surgery
== END 2018-09-22 13:20 | disposition home or self-care (01) | DRG 419 ==
LOC: ED 22:37 → ERH 09-18 02:33 → 3RNO 09-18 03:35
PROVIDERS: ADMIT Internal Medicine; ATTEND Internal Medicine
PROC: 0FT44ZZ Resection of Gallbladder, Percutaneous Endoscopic Approach (ICD-10-PCS; principal; 2018-09-21 07:30)
DX: K80.00 Calculus of gallbladder with acute cholecystitis without obstruction (principal); I10 Essential (primary) hypertension; F41.9 Anxiety disorder, unspecified; F17.210 Nicotine dependence, cigarettes, uncomplicated; Z87.442 Personal history of urinary calculi; Z98.84 Bariatric surgery status